=== PATIENT | female | born 1950 | race Caucasian/White ===

== ENCOUNTER → 2023-12-11 07:13 | Outpatient (REF) | payer MEDICARE, BC, SELFPAY | LOC: WDC 07:13 | PROVIDERS: ATTENDING PHYSICIAN Obstetrics & Gynecology Gynecology; FAMILY PHYSICIAN Family Medicine | DX: Z12.31 Encounter for screening mammogram for malignant neoplasm of breast (principal) | CPT/HCPCS: 77063; 77067 ==

== ENCOUNTER 2024-03-24 14:14 | Inpatient (IN) | payer MEDICARE, BC, SELFPAY ==
[2024-03-24 09:39] VITALS: BP 170/106
--- NOTE | 2024-03-24 09:48 | ED.GENMED ---
History of Present Illness
General
Chief Complaint: Blood Sugar Problem
Time Seen by Provider: 03/24/24 09:48
Travel History
Have you had any contact with someone who has COVID-19?: No
Do you have any symptoms of coronavirus? Fever > 100 degrees, chills, cough, shortness of breath, sore throat, loss of taste or smell, muscle aches, or headache?: No
History of Present Illness
History of Present Illness:
HPI: She states she has been on Trulicity since about 1984 but most recently has been having trouble getting it filled as 'nobody has it anymore'. She was switched to Ozempic 8 days ago and since that time she has had nausea, vomiting, diarrhea,
and dizziness. She also is currently being worked up for the possible of cirrhosis and is noted to Dr. Pizano. She reports borderline fever with 100.2 and reports decreased urination recently. She was recommended to start Mounjaro when her
symptoms resolved however she still has ongoing symptoms.
EXAM:
GENERAL: Well appearing in no distress
HEENT: Moist oral mucosa
CARDIOVASCULAR: No murmurs, normal heart rate, regular rhythm, No chest wall tenderness
PULMONARY: No respiratory distress, breath sounds are clear and equal
ABDOMEN: Soft with no peritoneal signs, very mild right tenderness
NEUROLOGIC: Excellent strength all extremities, no coordination deficits
PSYCHIATRIC: Appropriate mental status, normal insight and judgement
EXTREMITIES: Nontender, no edema, moves all extremities equally
SKIN: No rash, no lesions
TIME OF INITIAL ENCOUNTER: 9:55 AM
NUMBER AND COMPLEXITY OF PROBLEMS ADDRESSED AT THE ENCOUNTER
� Chronic conditions affecting care: Diabetes, high blood pressure, hyperlipidemia, migraines
� Acute Exacerbation and/or Progression of Chronic Illness: This is an acute problem
� Differential Diagnosis includes: Dehydration, BAO, electrolyte abnormality, hypoglycemia, hyperglycemia
AMOUNT AND/OR COMPLEXITY OF DATA TO BE REVIEWED AND ANALYZED
� I performed an independent evaluation of and my interpretation is:
EKG:
CT:
X-rays:
Laboratory Studies: White count 10.5, hemoglobin normal, creatinine is 3.1 which is acutely abnormal, bicarb 17, BUN 74, initial glucose 52 then after treatment is at the
Other:
� Review of other/old records: I reviewed ultrasound report from October 2023 that showed fatty liver and gastric emptying study suggested gastroparesis
� Clinical information was obtained by an independent historian: I spoke to the at bedside
� Prescriptions/Medications Considered but not given:
� Further testing considered but not performed:
RISK OF COMPLICATIONS AND/OR MORBIDITY OR MORTALITY OF PATIENT MANAGEMENT
� Social determinants of health affecting care: Lives at home
� Discussion with other providers: Discussed case with Dr. Vizcarra at 11:37 AM for admission to the hospital
� Escalation of care including admission/observation vs risk of discharge considered: The patient is given IV fluids. Labs were also checked. Initial blood sugar on the chemistry is a 52, after juice and dextrose, blood sugar
now at 138. Creatinine is significant elevated compared to prior now at 3
Past History
Past History
ED Past Medical History: Arrthythmia (Paroxysmal atrial fibrillation), Cancer (Cervical), HTN, Hypercholesterolemia, NIDDM, Hypothyroidism and Other (diverticulitis, Kidney stone,)
ED Past Surgical History: Appendectomy ([facility]), Bowel resection, Cardiac (Cardiac catheterization March 2017, unremarkable, Ablation for atrial fib), Cholecystectomy, Gynecological (Hysterectomy), Orthopedic (R hip replacement) and Urological
(Bladder suspension, lithotripsy with ureteral stent and stone removal)
Social History
Tobacco: Former smoker (Quit in 1981)
Alcohol: Occasional
Personal:
Living: with family
Employment: Retired
Family History
Family History: CAD
Phy Exam
Physical Exam
Physical Exam:
See HPI
Course
Orders/Labs/Results
Orders:
Orders
03/24/24 09:52
0.9% Sodium Chloride 1000 ml [Nss] 1,000 ml IV BOLUS
03/24/24 10:03
Ondansetron Injectable [Zofran] 4 mg IV NOW STA
03/24/24 10:15
Complete Blood Count/With Diff Urgent
Comprehensive Metabolic Panel Urgent
Direct Bilirubin Urgent
Lipase Urgent
03/24/24 11:00
Dextrose 10%/Water 500 ml [D10w] 500 ml IV 250 mls/hr
03/24/24 11:33
CT Abd/pel Without Iv Or Oral Urgent
Comment:
Reason For Exam: R pain; BAO
03/24/24 11:35
0.9% Sodium Chloride 1000 ml [Nss] 1,000 ml IV BOLUS
03/24/24 12:31
Urinalysis Reflex To Culture Urgent
Date Specimen was Collected: 03/24/24
Time Specimen was Collected: 12:29
Urine Microscopic Reflex Cult Urgent
Urine Culture Urgent
REESE Source: U
Specimen Description:
Date Specimen was Collected: 03/24/24
Time Specimen was Collected: 12:29
03/24/24 12:44
Add On- LAB Urgent
Tests Added?: lft's , t bili
03/24/24 13:19
Ondansetron Injectable [Zofran] 4 mg IV Q6HPRN PRN
Pantoprazole [Protonix IV] 40 mg IV NOW STA
03/24/24 13:20
Accucheck [Bedside Glucose Monitoring] As Directed
Frequency: q4h
03/24/24 13:48
Admit/Transfer Patient As Directed
Co-Sign Provider:
Level of Care: Inpatient admission
Assign to:: Medical/Surgical
Physician / Group: maureen rogel
Diagnosis: bao 2/2 n,v,d vs obst process
Reason for Hospitalization: bao 2/2 n,v,d vs obst process
Expected length of stay greater than two midnights?: Yes
ELOS- Estimated Length of Stay in days: 3
I certify the patient meets the requirements for IP care: Yes
Code Status As Directed
Resuscitation Status: Full Code
03/24/24 13:56
0.9% Sodium Chloride [Nss (Preservative Free)] 10 ml IV NOW STA
03/24/24 15:39
0.9% Sodium Chloride 1000 ml [Nss] 1,000 ml IV 100 mls/hr
Dextrose 50%-Water [Dextrose 50% Syringe] 12.5 grams IV [id number] PRN
Glucagon [GlucaGen] 1 mg IM PRN PRN
03/24/24 15:39
Activity As Directed
Activity Level: As Tolerated
Bedside Glucose Monitoring As Directed
Frequency: AC&HS
Additional Instructions:: Change to q6h if pt on TPN, tube feeding or not eating
Intake/ Output As Directed
Frequency: Per unit guidelines
Pneumatic Compression Sleeves As Directed
Type: Knee high
Vital Signs As Directed
Frequency: Per unit guidelines
Ot Eval And Treat Routine
Pt Eval And Treat Routine
Activity Level: As Tolerated
DX Deep Vein Thrombosis Video Routine
03/24/24 16:30
Insulin Aspart Corrective Low [Novolog Flexpen-Low Resistance] See Protocol SC AC
03/25/24 06:00
Cardiovascular Evaluation IN AM
Complete Blood Count/With Diff IN AM
Comprehensive Metabolic Panel IN AM
Glycohemoglobin (HgbA1c) IN AM
03/25/24 08:00
0.9% Sodium Chloride [Nss (Preservative Free)] 10 ml IV DAILY
Pantoprazole [Protonix IV] 40 mg IV DAILY
03/26/24 06:00
Complete Blood Count/With Diff IN AM
Comprehensive Metabolic Panel IN AM
03/27/24 06:00
Complete Blood Count/With Diff IN AM
Comprehensive Metabolic Panel IN AM
Abnormal Lab Results
03/24/24 03/24/24 03/24/24
10:15 11:25 12:31
RBC 4.17 L 10^6/uL
(4.20-5.40)
MCH 32.1 H pg
(27.0-31.0)
Abs Immat Gran (auto) 0.1 H 10^3/uL
(0-0.05)
Absolute Monos (auto) 0.8 H 10^3/uL
(0.1-0.6)
Immature Gran % 0.6 H %
(0-0.5)
Carbon Dioxide 17 L mmol/L
(22-30)
BUN 74 H mg/dl
(7-17)
Creatinine 3.1 H mg/dL
(0.6-1.0)
Glucose 52 L* mg/dl
(70-99)
Calcium 11.0 H mg/dl
(8.4-10.2)
AST 47 H U/L
(14-36)
ALT 43 H U/L
(0-35)
Lipase 352 H U/L
(23-300)
Urine Nitrite (Reflex) Positive A
(Negative)
Leukocyte Esterase Rfl 1+ A
(Negative)
Urine WBC (Reflex) 16-20 A /HPF
(0-5)
Urine Bacteria (Reflex) Many A
(Negative)
POC Glucose 138 H mg/dl
(70-99)
03/24/24 10:15
03/24/24 10:15
Vital Signs
Initial and Last Documented VS:
Initial Vital Signs
Temp Pulse Resp BP Pulse Ox
97.9 F 71 20 170/106 98
03/24/24 09:39 03/24/24 09:39 03/24/24 09:39 03/24/24 09:39 03/24/24 09:39
Last Documented Vital Signs
Temp Pulse Resp BP Pulse Ox
98.3 F 77 18 133/67 96
03/24/24 13:01 03/24/24 15:00 03/24/24 15:00 03/24/24 15:00 03/24/24 15:00
*Critical Care Note
Total Time (30-74mins, 75-104mins- exclusive of procedures): Not Applicable
ED Attending Note
-
Portions of this chart may have been created with voice recognition software.� Occasional wrong word or��sound alike� substitutions may have occurred due to the inherent limitations of voice recognition software.
Discharge Plan
Departure
Patient Disposition: Admit
Date of Disposition: 03/24/24
Time of Disposition: 11:37
Presentation/result/management discussed w/ accepting MD/DO: Hospitalist
Discharge Problem:
BAO (acute kidney injury)
Interventions
Interventions:
*Risk Screen - Suicide Last Done: 03/24/24 09:39
*General Assessment Last Done: 03/24/24 09:39
*Neglect/Abuse Screening Last Done: 03/24/24 09:39
ED- Fall Risk Assessment Last Done: 03/24/24 15:16
*ED COVID-19 Vaccine History Last Done: 03/24/24 16:05
*Nursing Disposition Last Done: 03/24/24 16:16
ED- Neurological Assessment Last Done: 03/24/24 10:14
Discharge Date and Time
Discharge Date/Time: 03/24/24 16:17
[2024-03-24] MEDS: NSS 1000 IV ×3 (10:18→16:32)
[2024-03-24] MEDS: ZOFRAN 4 MG IV ×2 (10:20→15:01)
[2024-03-24 10:25] VITALS: BMI 29.3
[2024-03-24 10:25] LABS: % Basophils 0.4 % (0-2); % Eosinophils 1.1 % (0-6); % Immature Granulocytes 0.6 % (0-0.5); % Lymphocytes 31.9 % (20.5-51.1); % Monocytes 7.4 % (1.7-9.3); % Neutrophils 58.6 % (42.2-75.2); Absolute Eosinophils 0.1 10^3/uL (0-0.7); Absolute Immature Granulocytes 0.1 10^3/uL (0-0.05); Absolute Lymphocytes 3.3 10^3/uL (1.2-3.4); Absolute Monocytes 0.8 10^3/uL (0.1-0.6); Absolute Neutrophils 6.1 10^3/uL (1.4-6.5); Hematocrit 38.2 % (37.0-47.0); Hemoglobin 13.4 g/dL (12.0-16.0); Mean Corp Hgb Conc. 35.1 g/dL (33.0-37.0); Mean Corpuscular Hgb 32.1 pg (27.0-31.0); Mean Corpuscular Volume 91.6 fL (81.0-99.0); Mean Platelet Volume 9.5 fL (7.4-10.4); Nucleated Red Blood Cells % 0 %; Platelet Count 281 10^3/uL (130-400); Red Blood Cell Count 4.17 10^6/uL (4.20-5.40); Red Cell Dist. Width 12.8 % (11.5-14.5); White Blood Cell Count 10.5 10^3/uL (4.8-10.8)
[2024-03-24 10:44] LABS: Blood Urea Nitrogen 74 mg/dl (7-17); Carbon Dioxide 17 mmol/L (22-30); Chloride 102 mmol/L (98-107); Estimated Creatinine Clearance 14 ml/min; Glucose 52 mg/dl (70-99); Potassium 4.6 mmol/L (3.5-5.1); Sodium 136 mmol/L (135-145); eGFR 15.11
[2024-03-24 10:52] LABS: Lipase 352 U/L (23-300)
[2024-03-24] MEDS: D10W 500 IV (10:58)
[2024-03-24 11:26] LABS: Glucose - Point of Care 138 mg/dl (70-99)
--- NOTE | 2024-03-24 12:46 | HPS.HSE ---
Addendum entered and electronically signed by Santana Lopez MD 03/24/24 16:03:
Seen and examined by me independently in collaboration with the nurse practitioner Kaitlin.
Past medical history/social history/medication/allergies reviewed.
Lab data and imaging data reviewed.
DM Type 2 was on Trulicity but because of issue with supply, she was prescribed Ozempic and after she took the first dose of 2.5 mg injection of Ozempic she started to have nausea vomiting and diarrhea. She did not go back on that. She was given
Mounjaro instead of that once the GI symptoms resolved but she has not started taking that. With continued GI symptoms she comes to the hospital. She has some abdominal pain crampy in the upper abdomen area. No fever or chills.
Despite GI symptoms she continued to take her medication including glimepiride, metformin and antihypertensives ARB.
She is discovered to have acute kidney injury with hypoglycemia and metabolic acidosis with elevated anion gap.
Abdomen epigastric and right upper quadrant area tenderness. She had a prior gallbladder resection. Mild elevated lipase�LFTs noted. She is known to have COLLADO. Transaminitis at her baseline.
She had prior history of nephrolithiasis.
Obtain a CT of the abdomen pelvis to rule out any obstructing stones. Start on IV fluids with bicarbonate as venous pH was 7.27. Consult nephrology. Treat symptomatically for GI symptoms for now till the CT of the abdomen pelvis is back.
Consider GI eval depending on etiology. Abdomen is benign other than tenderness in epigastric and right upper quadrant area. Start a PPI.
Original Note:
Family Physician
-
Family Physician: Norberto Perez
Chief Complaint
-
Nausea, vomiting, diarrhea, bilateral flank pain, right upper quadrant pain
History of Present Illness
73-year-old female who has been on Trulicity since 1984. She has been having trouble getting the medication filled as it is not in stock and she missed a week. She was switched to Ozempic 8 days ago since that time she has had daily nausea,
vomiting, diarrhea and dizziness. Despite the symptoms she continued to take her daily medications including Avapro, metformin. She complains today of right upper quadrant pain and bilateral flank pain. She denies dysuria, frequency, urgency.
She was also noted to be hypoglycemic with blood sugar 57 in the ER which was treated with IV D10. She also reports a borderline fever of 100.2 with decreased urination. She denies headache, sore throat, chest pain, palpitations, shortness breath,
cough, urinary symptoms. In the ER her labs revealed BAO with a creat of 3.1. She she was advised by her PCP to switch to Mounjaro after symptoms resolved. She is also getting worked up for possible COLLADO cirrhosis by Dr. Pizano from
gastroenterology.
PMH DM2, HTN, HLD, paroxysmal A-fib�status post ablation, left ventricular hypertrophy ex-smoker, GERD, duodenal ulcer with GI bleed 2017 secondary to NSAID use, chronic diarrhea, iron deficiency anemia, CVA, migraines, restless leg syndrome,
hypothyroidism diverticulosis/diverticulitis, anemia, cervical cancer status post hysterectomy, renal calculi, osteoarthritis, DDD, lumbar stenosis, fibromyalgia, tobacco use, obesity
Medical History
Past Medical History
Past Medical History: Reports Other
Additional Past Medical History:
DM2
HTN
HLD
Paroxysmal A-fib�status post cryo ablation 2016
Hypothyroidism
Left ventricular hypertrophy
GERD
Duodenal ulcer with GI bleed 2017 secondary to NSAID use
Chronic diarrhea
Diverticulosis/diverticulitis,
Iron deficiency anemia,
Ex-smoker
CVA
migraines
restless leg syndrome
anemia
cervical cancer status post hysterectomy
renal calculi with history of renal stent and kidney stone removal March 2017
osteoarthritis
DDD
lumbar stenosis
fibromyalgia
tobacco use
obesity
Melanoma removal left lower extremity 2018
Past Surgical History: Reports Other
Additional Past Surgical History:
Hysterectomy
Colon resection 1981
Bladder suspension 1995, 1999
Cholecystectomy
Bunionectomy 1989
Left rotator cuff repair 1999
Bilateral knee surgery 2003
Right hip replacement
Right total knee arthroplasty February 2018
Left total knee arthroplasty January 2019
Left hip surgery March 2021
Spinal surgery 2021
Right great toe joint replacement 1997
Cardiac cath 2020 and 03/25/2017
Renal stent 03/25/2017 with kidney stone removal
PVI with cryo 05/22
Lipoma removals
Melanoma removal left lower extremity 2018
Bilateral cataract extraction
Social History
Tobacco: Non-smoker
Alcohol: None
Drug: None
Family History
Family History: Other (Mother IA age 52, father Alzheimer's age 83, 2 siblings 1 brother drug addiction 1 sister lung cancer other brother living unknown)
Allergies / Home Medications
Allergies reflects when Allergies were last updated in [facility].
Home Medications with original date entered in [facility]
Allergy/Medication List:
Allergies
Allergy/AdvReac Type Severity Reaction Status Date / Time
latex [Latex] Allergy breathing Verified 03/24/24 09:46
problems,
Rash
Hives,swelling
Sulfa (Sulfonamide Allergy short of Verified 03/24/24 09:46
Antibiotics) breath
sulfisoxazole Allergy SHORTNESS Verified 03/24/24 09:46
OF BREATH
FROM SULFA
ABX
carvedilol [From Coreg] AdvReac Nausea Verified 03/24/24 09:46
cephalexin [From Keflex] AdvReac Vomiting Verified 03/24/24 09:46
ciprofloxacin [From Cipro] AdvReac Nausea / Verified 03/24/24 09:46
Vomiting
codeine AdvReac severe Verified 03/24/24 09:46
vomiting
hydrocodone AdvReac Nausea / Verified 03/24/24 09:46
Vomiting
levofloxacin [From Levaquin] AdvReac Tendonitis, Verified 03/24/24 09:46
Myalgias
morphine AdvReac Patient Verified 03/24/24 09:46
feels that
she can
handle
morphine
niacin AdvReac red Verified 03/24/24 09:46
rash;skin
gets hot
NSAIDS (Non-Steroidal AdvReac GI Verified 03/24/24 09:46
Anti-Inflamma bleeding -
needed
transfusions
oxycodone HCl [From Percocet] AdvReac Vomiting Verified 03/24/24 09:46
tramadol HCl [From Ultram] AdvReac Nausea / Verified 03/24/24 09:46
Vomiting
Home Medications
L.acidoph, paracasei,B. lactis 10 billion cell capsule 1 ea PO DAILY Gastrointestinal issue 02/10/17
cyanocobalamin (vitamin B-12) 1,000 mcg tablet 1,000 mcg PO DAILY Supplement 02/10/17
glimepiride 4 mg tablet 4 mg PO BID Diabetes 02/10/17
levothyroxine 112 mcg tablet 112 mcg PO DAILY Thyroid 02/10/17
metoprolol succinate 50 mg tablet,extended release 24 hr 50 mg PO HS Blood pressure 02/10/17
metformin 1,000 mg tablet 1,000 mg PO BID #0 tabs 02/15/18
biotin 5,000 mcg disintegrating tablet 5,000 mcg PO DAILY Supplement 02/11/21
omega-3 acid ethyl esters 1 gram capsule (Lovaza) 2 cap PO BID High cholesterol ##0 02/11/21
therapeutic multivitamin 1 tab PO DAILY Supplement ##0 02/11/21
irbesartan 75 mg tablet (Avapro) 75 mg PO DAILY 03/02/23
omeprazole 20 mg capsule,delayed release 20 mg PO DAILYPRN PRN gerd 03/02/23
aspirin 81 mg tablet,delayed release 81 mg PO DAILY 03/24/24
cholecalciferol (vitamin D3) 25 mcg (1,000 unit) tablet (Vitamin D3) 25 mcg PO Q48H 03/24/24
Review of Systems
-
History Source: Patient and Family ( bedside)
A 12 point ROS was completed and negative except as noted: Yes
Constitutional: Denies Fever or Chills
EENT: Denies Sore Throat or Runny Nose
Respiratory: Denies Cough or Trouble Breathing
Cardiac: Denies Chest Pain, Diaphoresis, Palpitations or Syncope
Abdomen/GI: Reports Abdominal Pain (Right upper quadrant), Nausea, Vomiting and Diarrhea
: Reports Flank Pain (Bilateral); Denies Dysuria, Frequency, Incontinence, Difficulty Voiding or Urgency
Musculoskeletal: Denies Joint Pain or Edema
Skin: Denies Itching or Rash
Neurological: Reports Dizzy; Denies Headache or Weakness
Endocrine: Reports No Symptoms
Hematologic/Lymphatic: Reports No Symptoms
Psych: Reports Calm
Physical Exam
Vital Signs
Vital Signs
Temp Pulse Resp BP Pulse Ox
97.9 F 71 20 170/106 98
03/24/24 09:39 03/24/24 09:39 03/24/24 09:39 03/24/24 09:39 03/24/24 09:39
Physical Exam
General: Comfortable and Conversant; No Fever or Chills
HEENT: NormoCephalic, Anicteric, PERRLA, [place] Conjunctivae, No Ptosis and Other (Dry oral mucosa)
Respiratory: Clear; No Wheezes, Rales or Rhonchi
Cardiac: S1/S2 and Regular Rhythm; No Murmur, Rub, Gallop or Peripheral Edema
Breast: Deferred by me
GI: Soft, Non Distended, Normal Bowel Sounds, Tender (Right upper quadrant) and No Hepatosplenomegaly
Rectal: Deferred by Provider
Genito-urinary: Costovertebral angle tend (Bilateral CVA tenderness)
Musculoskeletal: No Clubbing, No Cyanosis and No Edema
Skin: Warm and Dry; No Rash or Jaundice
Neuro: AO x 3, No Motor Deficits, Nonfocal/grossly intact, Cranial Nerves Intact and No Sensory Deficits; No Slurred Speech, Facial Droop or Tremors
Psych: Calm
Laboratory Results
-
03/24/24 10:15
03/24/24 10:15
Laboratory Results
Lipase 352 U/L (23-300) H 03/24/24 10:15
Impression/Plan
-
Impression/plan:
Admit to MedSurg
#Acute nausea vomiting diarrhea likely secondary to Ozempic versus acute gastroenteritis versus intra-abdominal process
#Hx cholecystectomy
-Lipase 352, check LFTs
-Check CT abdomen pelvis
Initial dose of Ozempic was started on 03/16/2024
-IV Zofran
-IV NSS
-IV PPI
-Follow CBC, CMP
#BAO 2/2 nausea, vomiting, diarrhea versus obstructive uropathy
#Hx of Renal stent 03/25/2017 with kidney stone removal
Creat 3.1 was 0.7 in 2022, bun 74
-IV fluids given in ER D10 250 cc an hour
-Monitor urine output
-HOLD metformin 1000 mg twice daily,-HOLD irbesartan 75 mg daily
-Check CT abdomen pelvis
-Follow BMP
#DM2 with acute hypoglycemia likely secondary to Ozempic with nausea vomiting diarrhea
#Hx Trulicity since 1984 no longer in stock
-Took Ozempic 8 days ago 03/16/24
-Blood sugar was 52 in the emergency department she was treated with oral juice and D10
-Will follow Accu-Cheks every 4 hours with as needed dextrose
-Check HgbA1c
-HOLD metformin, glimepiride 4 mg twice daily
--HOLD irbesartan 75 mg daily
-Recommend following up with PCP for possible switch to Mounjaro per prior recommendation
#Fatty liver
-Patient being worked up for possible Collado cirrhosis by Dr. Jerica GASTON
#HTN�benign
BP 168/93
-Continue metoprolol succinate 50 mg at bedtime
-HOLD irbesartan 75 mg daily
#Hypothyroidism
Continue levothyroxine 112 mcg daily
#HLD
Check LFTs
Lovasa 2 capsules p.o. twice daily
#Chronic iron deficiency anemia
No reported iron supplements
Hgb 13.4, MCV 91.6
#Paroxysmal A-fib�status post cryo ablation 2016
#GERD/ duodenal ulcer with GI bleed 2017 secondary to NSAID use
-Continue IV PPI
#Hx chronic diarrhea
#Diverticulosis diverticulitis Hx
# Former nicotine abuse
1/4 pack a day x 18 years stopped 1985
#CVA hx
Hold current aspirin, Lovaza due to nausea vomiting
#Migraines hx -no current headache
#Fibromyalgia
#Osteoarthritis
#DDD
#lumbar stenosis
#Obesity due to excess calorie consumption�BMI 29.3 KG
-Patient currently on weight loss medication
Other PMH:
Left ventricular hypertrophy
ex-smoker
restless leg syndrome
cervical cancer status post hysterectomy
DVT prophylaxis
SCDs
Full code
[2024-03-24 13:01] VITALS: BP 120/65
[2024-03-24 13:05] LABS: Urine Albumin Trace (Neg - Trace); Urine Bilirubin Negative (Negative); Urine Character Slightly Cloudy (Clear); Urine Color Yellow; Urine Glucose Negative (Negative); Urine Ketone Negative (Negative); Urine Leukocyte 1+ (Negative); Urine Nitrite Positive (Negative); Urine Occult Blood Negative (Negative); Urine Urobilinogen Negative (Neg - 1+)
[2024-03-24 13:44] LABS: ALT (SGPT) 43 U/L (0-35); AST (SGOT) 47 U/L (14-36); Albumin 4.5 g/dl (3.5-5.0); Alkaline Phosphatase 67 U/L (38-126); Direct Bilirubin 0.4 mg/dl (0.0-0.4); Total Bilirubin 0.6 mg/dl (0.2-1.3); Total Protein 7.7 g/dl (6.3-8.2)
[2024-03-24 14:21] LABS: Urine Squamous Cell 16-20 /LPF (Few)
[2024-03-24 14:22] LABS: Urine Red Blood Cell 0-2 /HPF (0-2); Urine White Cell 16-20 /HPF (0-5)
[2024-03-24 14:23] LABS: Urine Bacteria Many (Negative)
[2024-03-24 14:32] LABS: Glucose - Point of Care 41 mg/dl (70-99)
[2024-03-24] MEDS: NSS (PRESERVATIVE FREE) 10 ML IV (14:42)
[2024-03-24 15:00] VITALS: BP 133/67; BP 161/90
[2024-03-24 15:01] LABS: Glucose - Point of Care 162 mg/dl (70-99)
[2024-03-24] MEDS: PROTONIX IV 40 MG IV (15:04)
[2024-03-24 15:06] LABS: Venous Blood Gas B.E. -7.7 mmol/L (-4 to +4); Venous Blood Gas HCO3 18.8 mmol/L (22-27); Venous Blood Gas O2 Sat % 57.9 %; Venous Blood Gas pCO2 41 mmHg (35-48); Venous Blood Gas pH 7.27 (7.32-7.43); Venous Blood Gas pO2 35 mmHg (30-50)
--- NOTE | 2024-03-24 15:27 | W.CON.NEPH ---
Consultation
-
Date/Time Consultation Requested: 03/24/2024 14:20
Date/Time Consultation Performed: 03/24/2024 3:30PM
Requesting Provider: Kaitlin German
Performing Provider: Rosi Galloway
Reason for Consultation: BAO
Medical History
-
Chief Complaint: BAO
History of Present Illness:
Ms. Barboza is a 73YOF with PMH of T2DM, HTN, DLD, pAfib, hypothyroidism, LVH, GERD, chronic diarrhea, CVA, renal calculis with hx of stent in 2017, obesity who presents to the hospital for nausea, vomittin, diarrhea, and abd pain.
Says that she has been on Trulicity since 1984. Has been having trouble getting the medication filled. She was switched to Ozempic 8 days ago since that time she has had daily nausea, vomiting, diarrhea. She endorses lightheadedness and dizziness
for the past week. Despite the symptoms she continued to take her daily medications including metformin. She complains today of right back pain. She denies dysuria, frequency, urgency. She was also noted to be hypoglycemic with blood sugar 57 in
the ER which was treated with IV D10. She denies headache, sore throat, chest pain, palpitations, shortness breath, cough, urinary symptoms.
Her Cr was noted to 3.1 in the ER for which nephrology is consulted. Denies NSAID usage
Past Medical History
DM2
HTN
HLD
Paroxysmal A-fib�status post cryo ablation 2016
Hypothyroidism
Left ventricular hypertrophy
GERD
Duodenal ulcer with GI bleed 2016 secondary to NSAID use
Chronic diarrhea
Diverticulosis/diverticulitis,
Iron deficiency anemia
Ex-smoker
CVA
migraines
restless leg syndrome
anemia
cervical cancer status post hysterectomy
renal calculi with history of renal stent and kidney stone removal March 2017
osteoarthritis
DDD
lumbar stenosis
fibromyalgia
tobacco use
obesity
Melanoma removal left lower extremity 2018
Past Surgical History: Other (Hysterectomy Colon resection 1981 Bladder suspension 1995, 1999 Cholecystectomy Bunionectomy 1989 Left rotator cuff repair 1999 Bilateral knee surgery 2003 Right hip replacement Right total knee arthroplasty February 2018
Left total knee arthroplasty January 2019 Left hip surgery March 2021 Spinal surgery )
Social History
Tobacco: Non-Smoker
Alcohol: None
Drug: None
Allergies / Home Medications
Allergy/AdvReac Type Severity Reaction Status Date / Time
latex [Latex] Allergy breathing Verified 03/24/24 09:46
problems,
Rash
Hives,swelling
Sulfa (Sulfonamide Allergy short of Verified 03/24/24 09:46
Antibiotics) breath
sulfisoxazole Allergy SHORTNESS Verified 03/24/24 09:46
OF BREATH
FROM SULFA
ABX
carvedilol [From Coreg] AdvReac Nausea Verified 03/24/24 09:46
cephalexin [From Keflex] AdvReac Vomiting Verified 03/24/24 09:46
ciprofloxacin [From Cipro] AdvReac Nausea / Verified 03/24/24 09:46
Vomiting
codeine AdvReac severe Verified 03/24/24 09:46
vomiting
hydrocodone AdvReac Nausea / Verified 03/24/24 09:46
Vomiting
levofloxacin [From Levaquin] AdvReac Tendonitis, Verified 03/24/24 09:46
Myalgias
morphine AdvReac Patient Verified 03/24/24 09:46
feels that
she can
handle
morphine
niacin AdvReac red Verified 03/24/24 09:46
rash;skin
gets hot
NSAIDS (Non-Steroidal AdvReac GI Verified 03/24/24 09:46
Anti-Inflamma bleeding -
needed
transfusions
oxycodone HCl [From Percocet] AdvReac Vomiting Verified 03/24/24 09:46
tramadol HCl [From Ultram] AdvReac Nausea / Verified 03/24/24 09:46
Vomiting
�Medication �Instructions �Recorded �Confirmed �Type
L.acidoph, paracasei,B. lactis 10 1 ea PO DAILY Gastrointestinal 02/10/17 03/24/24 History
billion cell capsule issue
cyanocobalamin (vitamin B-12) 1,000 mcg PO DAILY Supplement 02/10/17 03/24/24 History
1,000 mcg tablet
glimepiride 4 mg tablet 4 mg PO BID Diabetes 02/10/17 03/24/24 History
levothyroxine 112 mcg tablet 112 mcg PO DAILY Thyroid 02/10/17 03/24/24 History
metoprolol succinate 50 mg 50 mg PO HS Blood pressure 02/10/17 03/24/24 History
tablet,extended release 24 hr
metformin 1,000 mg tablet 1,000 mg PO BID #0 tabs 02/15/18 03/24/24 Rx
biotin 5,000 mcg disintegrating 5,000 mcg PO DAILY Supplement 02/11/21 03/24/24 History
tablet
omega-3 acid ethyl esters 1 gram 2 cap PO BID High cholesterol ##0 02/11/21 03/24/24 History
capsule (Lovaza)
therapeutic multivitamin 1 tab PO DAILY Supplement ##0 02/11/21 03/24/24 History
irbesartan 75 mg tablet (Avapro) 75 mg PO DAILY 03/02/23 03/24/24 History
omeprazole 20 mg capsule,delayed 20 mg PO DAILYPRN PRN gerd 03/02/23 03/24/24 History
release
aspirin 81 mg tablet,delayed 81 mg PO DAILY 03/24/24 03/24/24 History
release
cholecalciferol (vitamin D3) 25 25 mcg PO Q48H 03/24/24 03/24/24 History
mcg (1,000 unit) tablet (Vitamin
D3)
Review of Systems
-
History Source: Patient
All other systems: Negative unless noted
Constitutional: Fever, Weight Loss and Fatigue
Abdomen/GI: Nausea and Vomiting
Musculoskeletal: Other (back pain)
Skin: No Symptoms
Neurological: Dizzy and Weakness
Physical Exam
Vital Signs
Vital Signs
Temp Pulse Resp BP Pulse Ox
97.9 F 71 18 120/65 98
03/24/24 09:39 03/24/24 13:01 03/24/24 13:01 03/24/24 13:01 03/24/24 13:01
Lab Results
WBC 10.5 10^3/uL (4.8-10.8) 03/24/24 10:15
RBC 4.17 10^6/uL (4.20-5.40) L 03/24/24 10:15
Hgb 13.4 g/dL (12.0-16.0) 03/24/24 10:15
Hct 38.2 % (37.0-47.0) 03/24/24 10:15
Plt Count 281 10^3/uL (130-400) 03/24/24 10:15
Sodium 136 mmol/L (135-145) 03/24/24 10:15
Potassium 4.6 mmol/L (3.5-5.1) 03/24/24 10:15
Chloride 102 mmol/L (98-107) 03/24/24 10:15
Carbon Dioxide 17 mmol/L (22-30) L 03/24/24 10:15
BUN 74 mg/dl (7-17) H 03/24/24 10:15
Creatinine 3.1 mg/dL (0.6-1.0) H 03/24/24 10:15
eGFR 15.11 03/24/24 10:15
Glucose 52 mg/dl (70-99) L* 03/24/24 10:15
Calcium 11.0 mg/dl (8.4-10.2) H 03/24/24 10:15
Albumin 4.5 g/dl (3.5-5.0) 03/24/24 10:15
Physical Exam
General: AOx3
HEENT: PERRL, EOMI, Anicteric, Conjunctivae Clear, Ear/Nose Intact, Hearing Normal, Neck Supple, Trachea Midline, No JVD and Other (dry mucous membranes)
Respiratory: Clear and Wheezes
Cardiac: S1/S2, Regular Rate/Rhythm and No Edema
Breast: Deferred by me
Abdomen: Soft, Nontender and Nondistended
Rectal: Deferred by Provider
Genito-urinary: No Costovertebral Tender
Musculoskeletal: No Clubbing, No Cyanosis and No Edema
Skin: No Rash, Warm, Dry, No Clubbing and No Bruising
Neuro: Nonfocal/Grossly Intact
Hematologic/Lymphatic: No Cervical Lymphadenopathy
Psych: Mood/afflect pleasant and Insight/judgement good
Data Reviewed
-
Radiology: Report Reviewed by me (non objustructing L kidney stone)
Labs: Labs Reviewed by me, Discussed with Nurse and Discussed with Patient
Old Records: Reviewed
Assessment/Plan
-
Assessment:
BAO
HAGMA
Hypoglycemia
HTN
Plan:
BAO
- baseline Cr around 0.7, elevated to 3.1
- appears to be pre-renal vs ATN
- okay with fluids -- would change to LR at 250cc an hour once blood sugars stabilize
- urine notable for possible UTI, but not endorsing sxs at this time. cultures pending
- awaiting CT A/P
- hold further nephrotoxic agents
HAGMA
- likely in the setting of renal failure
- please obtain beta hydroxybutyrate + and lactate
[2024-03-24 16:00] VITALS: BMI 29.7
[2024-03-24] MEDS: D10W IV ×2 (16:29→16:30)
[2024-03-24 17:16] LABS: Glucose - Point of Care 76 mg/dl (70-99)
[2024-03-24] MEDS: NOVOLOG FLEXPEN-LOW RESISTANCE SC (17:29)
[2024-03-24 17:42] LABS: Lactic Acid 1.6 mmol/L (0.7-2.0)
[2024-03-24 18:13] LABS: B-Hydroxybutyrate 0.25 mmol/L (0.02-0.27)
[2024-03-24 20:19] LABS: Glucose - Point of Care 217 mg/dl (70-99)
[2024-03-24] MEDS: TYLENOL 650 MG PO (22:08)
[2024-03-24 23:19] VITALS: BP 154/84
[2024-03-25] MEDS: NSS 1000 IV ×2 (03:16→12:09)
[2024-03-25 03:18] LABS: Glucose - Point of Care 118 mg/dl (70-99)
[2024-03-25 06:00] VITALS: BMI 30.3
[2024-03-25 07:27] LABS: % Basophils 0.5 % (0-2); % Eosinophils 1.3 % (0-6); % Immature Granulocytes 0.9 % (0-0.5); % Lymphocytes 35.3 % (20.5-51.1); % Monocytes 8.8 % (1.7-9.3); % Neutrophils 53.2 % (42.2-75.2); Absolute Eosinophils 0.1 10^3/uL (0-0.7); Absolute Immature Granulocytes 0.1 10^3/uL (0-0.05); Absolute Monocytes 0.5 10^3/uL (0.1-0.6); Hematocrit 33.8 % (37.0-47.0); Hemoglobin 11.2 g/dL (12.0-16.0); Mean Corp Hgb Conc. 33.1 g/dL (33.0-37.0); Mean Corpuscular Volume 96.6 fL (81.0-99.0); Nucleated Red Blood Cells % 0 %; Platelet Count 172 10^3/uL (130-400); Red Cell Dist. Width 12.8 % (11.5-14.5); White Blood Cell Count 5.6 10^3/uL (4.8-10.8)
[2024-03-25 07:29] LABS: Glucose - Point of Care 138 mg/dl (70-99)
[2024-03-25 07:30] VITALS: BP 138/75
[2024-03-25] MEDS: NOVOLOG FLEXPEN-LOW RESISTANCE SC ×2 (08:05→16:19)
[2024-03-25 08:06] LABS: ALT (SGPT) 32 U/L (0-35); AST (SGOT) 40 U/L (14-36); Albumin 3.4 g/dl (3.5-5.0); Alkaline Phosphatase 64 U/L (38-126); Blood Urea Nitrogen 57 mg/dl (7-17); Calcium 8.9 mg/dl (8.4-10.2); Carbon Dioxide 19 mmol/L (22-30); Chloride 109 mmol/L (98-107); Estimated Creatinine Clearance 19 ml/min; Glucose 122 mg/dl (70-99); HDL Cholesterol 25 mg/dl; LDL Cholesterol, Calculated 54 mg/dl; Potassium 4.6 mmol/L (3.5-5.1); Sodium 136 mmol/L (135-145); Total Bilirubin 0.4 mg/dl (0.2-1.3); Total Cholesterol 132 mg/dl (50-199); Total Protein 6.1 g/dl (6.3-8.2); Triglyceride 266 mg/dl (10-149); Very Low Density Lipoprotein 53 mg/dl (0-30); eGFR 22.81
[2024-03-25] MEDS: PROTONIX IV 40 MG IV (08:06)
[2024-03-25] MEDS: NSS (PRESERVATIVE FREE) 10 ML IV (08:07)
--- NOTE | 2024-03-25 10:57 | W.PN.HOSP.TC ---
Today's Communication/Plan
-
stool studies. Blood cultures.
Start on ceftriaxone.
Continue with IV fluids.
Follow creatinine.
Assessment / Plan
Assessment / Plan
#Acute nausea vomiting diarrhea likely secondary to Ozempic versus acute gastroenteritis
#Hx cholecystectomy
-Lipase 352, LFTs at baseline
- CT abdomen pelvis Shows no acute findings other than known cirrhosis and portal hypertension
Initial dose of Ozempic was started on 03/16/2024
- resolved upper GI symptoms but having ongoing diarrhea.
- Continue to follow stool culture data and if negative and persistent diarrhea consult GI.
#BAO 2/2 nausea, vomiting, diarrhea versus obstructive uropathy
#Hx of Renal stent 03/25/2017 with kidney stone removal
Creat 3.1 was 0.7 in 2022, bun 74
- Improving creatinine
-cw IV fluids
- nephrology following
-HOLD metformin 1000 mg twice daily,-HOLD irbesartan 75 mg daily
- CT abdomen pelvis shows no obstructing calculus/obstructive uropathy
-Follow BMP
# dysuria with positive urinalysis suggestive of UTI. Urine culture growing E. coli. Started on ceftriaxone. Check blood cultures.
#DM2 with acute hypoglycemia likely secondary to Ozempic with nausea vomiting diarrhea
#Hx Trulicity since 1984 no longer in stock
-Took Ozempic 8 days ago 03/16/24
-Blood sugar was 52 in the emergency department she was treated with oral juice and D10
- No further hypoglycemias. Continue to follow Accu-Cheks.
-Check HgbA1c
-HOLD metformin, glimepiride 4 mg twice daily
--HOLD irbesartan 75 mg daily
-Recommend following up with PCP for possible switch to Mounjaro per prior recommendation
# Cirrhosis with portal hypertension
-No evidence of hepatic encephalopathy, GI bleed or ascites.
-Patient being worked up for possible Collado cirrhosis by Dr. Jerica GASTON
#HTN�benign
-Continue metoprolol succinate 50 mg at bedtime
-HOLD irbesartan 75 mg daily
#Hypothyroidism
Continue levothyroxine 112 mcg daily
#HLD
LFTs At baseline
Lovasa 2 capsules p.o. twice daily
#Chronic iron deficiency anemia
No reported iron supplements
Hgb 13.4, MCV 91.6
#Paroxysmal A-fib�status post cryo ablation 2016
#GERD/ duodenal ulcer with GI bleed 2016 secondary to NSAID use
-Continue IV PPI
#Hx chronic diarrhea
#Diverticulosis diverticulitis Hx
# Former nicotine abuse
1/4 pack a day x 18 years stopped 1985
#CVA hx
Hold current aspirin, Lovaza due to nausea vomiting
#Migraines hx -no current headache
#Fibromyalgia
#Osteoarthritis
#DDD
#lumbar stenosis
#Obesity due to excess calorie consumption�BMI 29.3 KG
-Patient currently on weight loss medication
Other PMH:
Left ventricular hypertrophy
ex-smoker
restless leg syndrome
cervical cancer status post hysterectomy
DVT prophylaxis
SCDs
Full code
Total time spent on today's encounter was 52 minutes which included time spent in counseling the patient regarding diagnosis and treatment plan as listed above, goals of care, and symptom management. Case was discussed with nursing staff, . All
labs and imaging personally reviewed by me. Remainder the time spent in detailed review of previous records, lab data, imaging, and other medical provider documentation.
Anticipated Discharge: > 48 hours
Subjective/Interval History
-
Date of Service: March 25, 2024
no nausea vomiting. Tolerating diet. But still persistent and loose stools.
No fever or chills.
Denies shortness of breath. No dizziness.
She says at home she did notice some discomfort urinating. She also seen decreased urine output in general. She was complaining of bilateral flank pains
Objective Data
-
Labs:
Laboratory Results
03/25/24
06:35
WBC 5.6
Hgb 11.2 L
Hct 33.8 L
Plt Count 172 D
Sodium 136
Potassium 4.6
Chloride 109 H
Carbon Dioxide 19 L
BUN 57 H
Creatinine 2.2 H
Glucose 122 H
Calcium 8.9 D
Total Bilirubin 0.4
AST 40 H
ALT 32
Alkaline Phosphatase 64
Vital Signs:
Vital Signs
Temp Pulse Resp BP Pulse Ox
97.9 F 71 17 138/75 96
03/25/24 07:30 03/25/24 07:30 03/25/24 07:30 03/25/24 07:30 03/25/24 07:30
I&O
03/24/24 03/25/24 03/26/24
06:59 06:59 06:59
Intake Total 2640 / 2640 240 / 240
Balance 2640 / 2640 240 / 240
Review of Systems
-
Respiratory: Denies Trouble Breathing
Cardiac: Denies Chest Pain
Neuro: Denies Dizzy
Physical Exam
-
General: No Apparent Distress
HEENT: Moist Mucous Membranes
Respiratory: Clear to Auscultation
Cardiac: Regular Rhythm and S1/S2
GI: Soft, Nontender, Nondistended and Normal Bowel Sounds
Genito-urinary: Costovertebral Angle Tend (some discomfort in Left CVA area today)
Neuro: AO x 3
Psych: Calm
Data Reviewed
-
CT Scan: Report Reviewed by me (CT A/P)
Labs: Labs Reviewed by me
[2024-03-25 11:08] LABS: Glucose - Point of Care 298 mg/dl (70-99)
[2024-03-25 11:35] VITALS: BP 153/89; PULSE 68; O2SAT 95
--- NOTE | 2024-03-25 11:40 | PTOTSP ---
pt currently demonstrates ability to complete simple ADLs, functional transfers, ambulation with supervision to no assistance. no acute OT needs identified at this time, will sign off.
[2024-03-25] MEDS: ROCEPHIN 1000 MG IV (12:12)
[2024-03-25] MEDS: STERILE WATER FOR INJECTION 10 ML IV (12:12)
--- NOTE | 2024-03-25 12:33 | W.PN.NEPH.PH ---
Today's Communication / Plan
-
Continue saline
Assessment/Plan
-
Assessment:
BAO
HAGMA
Hypoglycemia
HTN
Plan:
Continue IV fluids with saline
Follow basic metabolic panel
Can use bicarbonate fluids if acidosis worsens
-
-
Date of Service: March 25, 2024
CC / HPI / ROS
-
Chief Complaint:
Acute kidney injury
History of Present Illness:
BAO/creatinine down to 2.2
BP stable
Acidosis improving up to 19 with saline
Review of Systems:
Still with abdominal pain no worse or better
No shortness of breath
Watery diarrhea
Labs
-
Labs:
WBC 5.6 10^3/uL (4.8-10.8) 03/25/24 06:35
RBC 3.50 10^6/uL (4.20-5.40) L 03/25/24 06:35
Hgb 11.2 g/dL (12.0-16.0) L 03/25/24 06:35
Hct 33.8 % (37.0-47.0) L 03/25/24 06:35
Plt Count 172 10^3/uL (130-400) D 03/25/24 06:35
Sodium 136 mmol/L (135-145) 03/25/24 06:35
Potassium 4.6 mmol/L (3.5-5.1) 03/25/24 06:35
Chloride 109 mmol/L (98-107) H 03/25/24 06:35
Carbon Dioxide 19 mmol/L (22-30) L 03/25/24 06:35
BUN 57 mg/dl (7-17) H 03/25/24 06:35
Creatinine 2.2 mg/dL (0.6-1.0) H 05/20/24 06:35
eGFR 22.81 03/25/24 06:35
Glucose 122 mg/dl (70-99) H 03/25/24 06:35
Calcium 8.9 mg/dl (8.4-10.2) D 03/25/24 06:35
Albumin 3.4 g/dl (3.5-5.0) L 03/25/24 06:35
Physical Exam
-
Vital Signs:
Vital Signs
Temp Pulse Resp BP Pulse Ox
97.9 F 71 17 138/75 96
03/25/24 07:30 03/25/24 07:30 03/25/24 07:30 03/25/24 07:30 03/25/24 07:30
Cardiovascular:: Regular rate and rhythm
Respiratory:: Bilateral: CTA
Lung Excursion:: Normal
Abdomen:: Soft and Tender
Bowel Sounds:: Normal
Extremity Edema:: None: Bilateral:
[2024-03-25] MEDS: NOVOLOG FLEXPEN-LOW RESISTANCE 3 UNITS SC (12:35)
--- NOTE | 2024-03-25 12:43 | CM ---
Patient seen, initial assessment completed. Patient resides with her in a two story home, no steps to enter. Patient denies DME, VN, or SNF, reports outpatient PT in the past after knee and hip replacements. Patient confirms PCP Norberto
Chris, pharmacy [facility], confirms prescription coverage. Patient denies food insecurities at home. Per PT, no skilled PT need. CM will continue to follow for all discharge planning needs.
Plan; home no needs anticipated.
[2024-03-25 12:49] LABS: Glycohemoglobin (HgbA1c) 6.4 % (4.0-5.6)
[2024-03-25 15:28] VITALS: BP 151/95
[2024-03-25 16:18] LABS: Glucose - Point of Care 106 mg/dl (70-99)
[2024-03-25] MEDS: ZOFRAN 4 MG IV (20:26)
[2024-03-25] MEDS: TYLENOL 650 MG PO (20:48)
[2024-03-25 21:40] LABS: Glucose - Point of Care 169 mg/dl (70-99)
[2024-03-25 23:32] VITALS: BP 124/78
[2024-03-26] MEDS: NSS 1000 IV ×2 (00:08→10:38)
[2024-03-26 06:31] LABS: % Basophils 0.4 % (0-2); % Eosinophils 1.3 % (0-6); % Immature Granulocytes 0.9 % (0-0.5); % Lymphocytes 35.4 % (20.5-51.1); Absolute Eosinophils 0.1 10^3/uL (0-0.7); Absolute Lymphocytes 1.7 10^3/uL (1.2-3.4); Absolute Monocytes 0.4 10^3/uL (0.1-0.6); Absolute Neutrophils 2.5 10^3/uL (1.4-6.5); Hematocrit 32.7 % (37.0-47.0); Hemoglobin 11.1 g/dL (12.0-16.0); Mean Corp Hgb Conc. 33.9 g/dL (33.0-37.0); Mean Corpuscular Hgb 32.2 pg (27.0-31.0); Mean Corpuscular Volume 94.8 fL (81.0-99.0); Mean Platelet Volume 9.7 fL (7.4-10.4); Nucleated Red Blood Cells % 0 %; Platelet Count 168 10^3/uL (130-400); Red Blood Cell Count 3.45 10^6/uL (4.20-5.40); Red Cell Dist. Width 12.6 % (11.5-14.5); White Blood Cell Count 4.7 10^3/uL (4.8-10.8)
[2024-03-26 06:55] LABS: ALT (SGPT) 34 U/L (0-35); AST (SGOT) 35 U/L (14-36); Albumin 3.5 g/dl (3.5-5.0); Alkaline Phosphatase 57 U/L (38-126); Blood Urea Nitrogen 38 mg/dl (7-17); Calcium 8.7 mg/dl (8.4-10.2); Carbon Dioxide 21 mmol/L (22-30); Chloride 111 mmol/L (98-107); Estimated Creatinine Clearance 27 ml/min; Glucose 110 mg/dl (70-99); Potassium 4.6 mmol/L (3.5-5.1); Sodium 138 mmol/L (135-145); Total Bilirubin 0.3 mg/dl (0.2-1.3); Total Protein 6.2 g/dl (6.3-8.2); eGFR 33.42
[2024-03-26 07:50] VITALS: BP 173/91
[2024-03-26 07:58] LABS: Glucose - Point of Care 168 mg/dl (70-99)
[2024-03-26] MEDS: NSS (PRESERVATIVE FREE) 10 ML IV (08:07)
[2024-03-26] MEDS: NOVOLOG FLEXPEN-LOW RESISTANCE 1 UNITS SC ×2 (08:07→16:43)
[2024-03-26] MEDS: PROTONIX IV 40 MG IV (08:07)
--- NOTE | 2024-03-26 11:13 | W.PN.HOSP.TC ---
Today's Communication/Plan
-
Continue with oral diet.
Continue ceftriaxone. Follow blood culture data.
IV fluids per nephrology.
Start on beta-pradeep.
CW SSI
Assessment / Plan
Assessment / Plan
#Acute nausea vomiting diarrhea likely secondary to Ozempic versus acute gastroenteritis
#Hx cholecystectomy
-Lipase 352, LFTs at baseline
- CT abdomen pelvis Shows no acute findings other than known cirrhosis and portal hypertension
Initial dose of Ozempic was started on 03/16/2024
- resolving upper GI symptoms . Tolerating some diet.
- Has some epigastric discomfort - repeat lipase ,cw PPI
- No diarrhea to collect for specimen for stool culture .
#BAO 2/2 nausea, vomiting, diarrhea
#Hx of Renal stent 03/25/2017 with kidney stone removal
Creat 3.1 was 0.7 in 2022, bun 74
- Improving creatinine
- cw IV fluids per renal
- nephrology following
- HOLD metformin 1000 mg twice daily,-HOLD irbesartan 75 mg daily
- CT abdomen pelvis shows no obstructing calculus/obstructive uropathy
- Follow BMP
# dysuria with positive urinalysis suggestive of UTI. Urine culture growing E. coli. Started on ceftriaxone -cw it. Follow blood cultures.
#DM2 with acute hypoglycemia likely secondary to Ozempic with nausea vomiting diarrhea
#Hx Trulicity since 1984 no longer in stock
-Took Ozempic 8 days ago 03/16/24
-Blood sugar was 52 in the emergency department she was treated with oral juice and D10
- No further hypoglycemias. Continue to follow Accu-Cheks.
- HgbA1c 6.4
-HOLD metformin, glimepiride 4 mg twice daily
-Recommend following up with PCP for possible switch to Mounjaro per prior recommendation
# Cirrhosis with portal hypertension
-No evidence of hepatic encephalopathy, GI bleed or ascites.
-Patient being worked up for possible Collado cirrhosis by Dr. Pizano GI
#HTN�benign
-Continue metoprolol succinate 50 mg at bedtime
-HOLD irbesartan 75 mg daily
#Hypothyroidism
Continue levothyroxine 112 mcg daily
#HLD
LFTs At baseline
Lovasa 2 capsules p.o. twice daily
#Chronic iron deficiency anemia
No reported iron supplements
Hgb 13.4, MCV 91.6
#Paroxysmal A-fib�status post cryo ablation 2016
#GERD/ duodenal ulcer with GI bleed 2016 secondary to NSAID use
-Continue IV PPI
#Hx chronic diarrhea
#Diverticulosis diverticulitis Hx
# Former nicotine abuse
1/4 pack a day x 18 years stopped 1985
#CVA hx
Hold current aspirin, Lovaza due to nausea vomiting
#Migraines hx -no current headache
#Fibromyalgia
#Osteoarthritis
#DDD
#lumbar stenosis
#Obesity due to excess calorie consumption�BMI 29.3 KG
-Patient currently on weight loss medication
Other PMH:
Left ventricular hypertrophy
ex-smoker
restless leg syndrome
cervical cancer status post hysterectomy
DVT prophylaxis
SCDs
Full code
Anticipated Discharge: 24 - 48 hours
Subjective/Interval History
-
Date of Service: March 26, 2024
No vomiting. Much improved nausea. Able to tolerate some diet. Crampy abdominal pain. Diarrhea seems to have resolved. No bowel movement.
Still some dysuria and flank pains. No fever or chills.
Objective Data
-
Labs:
Laboratory Results
03/26/24
06:03
WBC 4.7 L
Hgb 11.1 L
Hct 32.7 L
Plt Count 168
Sodium 138
Potassium 4.6
Chloride 111 H
Carbon Dioxide 21 L
BUN 38 H
Creatinine 1.6 H
Glucose 110 H
Calcium 8.7
Total Bilirubin 0.3
AST 35
ALT 34
Alkaline Phosphatase 57
Vital Signs:
Vital Signs
Temp Pulse Resp BP Pulse Ox
97.9 F 71 16 173/91 99
03/26/24 07:50 03/26/24 07:50 03/26/24 07:50 03/26/24 07:50 03/26/24 08:00
I&O
03/25/24 03/26/24 03/27/24
06:59 06:59 06:59
Intake Total 2640 / 2640 3260 / 3260
Balance 2640 / 2640 3260 / 3260
Review of Systems
-
Respiratory: Denies Cough or Trouble Breathing
Cardiac: Denies Chest Pain
Neuro: Denies Dizzy
Physical Exam
-
General: No Apparent Distress
HEENT: Moist Mucous Membranes
Respiratory: Clear to Auscultation
Cardiac: Regular Rhythm and S1/S2
GI: Soft, Nondistended, Normal Bowel Sounds and Tender (discomfort in epigastic area)
Genito-urinary: Costovertebral Angle Tend (rt )
Neuro: AO x 3
Psych: Calm
Data Reviewed
-
Labs: Labs Reviewed by me
[2024-03-26 11:44] LABS: Glucose - Point of Care 132 mg/dl (70-99)
[2024-03-26] MEDS: NOVOLOG FLEXPEN-LOW RESISTANCE SC (11:47)
[2024-03-26] MEDS: ROCEPHIN 1000 MG IV (12:05)
[2024-03-26] MEDS: STERILE WATER FOR INJECTION 10 ML IV (12:05)
[2024-03-26] MEDS: ASPIR LOW (ENTERIC COATED) 81 MG PO (12:05)
[2024-03-26] MEDS: SYNTHROID 112 MCG PO (12:05)
--- NOTE | 2024-03-26 12:25 | W.PN.NEPH.PH ---
Today's Communication / Plan
-
reduce IVF
Assessment/Plan
-
Assessment:
BAO
HAGMA
Hypoglycemia
HTN
Plan:
Continue IV fluids with saline, reduce rate
Follow basic metabolic panel
Can use bicarbonate fluids if acidosis worsens
-
-
Date of Service: March 26, 2024
CC / HPI / ROS
-
Chief Complaint:
Acute kidney injury
History of Present Illness:
BAO/creatinine down to 1.6
BP stable
Acidosis improving up to 21 with saline
Review of Systems:
Still with abdominal pain no worse or better
No shortness of breath
poor po intake
Labs
-
Labs:
WBC 4.7 10^3/uL (4.8-10.8) L 03/26/24 06:03
RBC 3.45 10^6/uL (4.20-5.40) L 03/26/24 06:03
Hgb 11.1 g/dL (12.0-16.0) L 03/26/24 06:03
Hct 32.7 % (37.0-47.0) L 03/26/24 06:03
Plt Count 168 10^3/uL (130-400) 03/26/24 06:03
Sodium 138 mmol/L (135-145) 03/26/24 06:03
Potassium 4.6 mmol/L (3.5-5.1) 03/26/24 06:03
Chloride 111 mmol/L (98-107) H 03/26/24 06:03
Carbon Dioxide 21 mmol/L (22-30) L 03/26/24 06:03
BUN 38 mg/dl (7-17) H 03/26/24 06:03
Creatinine 1.6 mg/dL (0.6-1.0) H 03/26/24 06:03
eGFR 33.42 03/26/24 06:03
Glucose 110 mg/dl (70-99) H 03/26/24 06:03
Calcium 8.7 mg/dl (8.4-10.2) 03/26/24 06:03
Albumin 3.5 g/dl (3.5-5.0) 03/26/24 06:03
Physical Exam
-
Vital Signs:
Vital Signs
Temp Pulse Resp BP Pulse Ox
97.9 F 71 16 173/91 99
03/26/24 07:50 03/26/24 07:50 03/26/24 07:50 03/26/24 07:50 03/26/24 08:00
Cardiovascular:: Regular rate and rhythm
Respiratory:: Bilateral: Coarse
Lung Excursion:: Normal
Abdomen:: Nontender and Soft
Bowel Sounds:: Normal
Extremity Edema:: None: Bilateral:
[2024-03-26 15:55] VITALS: BP 147/83
--- NOTE | 2024-03-26 16:12 | CM ---
Chart reviewed, patient remains on IV fluids and antibiotics. Patient seen bedside, reports no needs to CM at this time. CM will continue to follow for discharge planning needs.
Plan; home no needs anticipated.
[2024-03-26 16:27] LABS: Glucose - Point of Care 152 mg/dl (70-99)
--- NOTE | 2024-03-26 16:45 | PTCARENOTE ---
03/26- Patient transferred and oriented to room without issue. AAOX3; Skin=CDI; 'hat' placed in toilet for stool collection when possible; patient is medsurg. Patient denies any current complaints or needs at this time.
[2024-03-26] MEDS: NSS IV (20:00)
[2024-03-26] MEDS: TYLENOL 650 MG PO (21:18)
[2024-03-26] MEDS: TOPROL XL 50 MG PO (21:22)
[2024-03-26 21:31] LABS: Glucose - Point of Care 112 mg/dl (70-99)
[2024-03-26 23:25] VITALS: BP 173/98
[2024-03-27] MEDS: NSS 1000 IV (04:08)
[2024-03-27] MEDS: SYNTHROID 112 MCG PO (05:51)
[2024-03-27 07:19] LABS: Blood Urea Nitrogen 25 mg/dl (7-17); Carbon Dioxide 22 mmol/L (22-30); Chloride 109 mmol/L (98-107); Estimated Creatinine Clearance 35 ml/min; Glucose 119 mg/dl (70-99); Potassium 5.4 mmol/L (3.5-5.1); Sodium 139 mmol/L (135-145); eGFR 47.21
[2024-03-27 07:30] VITALS: BP 168/97
[2024-03-27 07:47] LABS: Glucose - Point of Care 141 mg/dl (70-99)
[2024-03-27] MEDS: ASPIR LOW (ENTERIC COATED) 81 MG PO (08:27)
[2024-03-27] MEDS: PROTONIX IV 40 MG IV (08:27)
[2024-03-27] MEDS: NOVOLOG FLEXPEN-LOW RESISTANCE SC ×2 (08:27→11:50)
[2024-03-27] MEDS: TYLENOL 650 MG PO ×3 (09:35→22:14)
[2024-03-27] MEDS: NSS (PRESERVATIVE FREE) 10 ML IV (09:35)
[2024-03-27 11:41] LABS: Glucose - Point of Care 115 mg/dl (70-99)
[2024-03-27] MEDS: ROCEPHIN 1000 MG IV (11:51)
[2024-03-27] MEDS: STERILE WATER FOR INJECTION 10 ML IV (11:51)
[2024-03-27 14:40] LABS: Glucose - Point of Care 177 mg/dl (70-99)
--- NOTE | 2024-03-27 14:42 | W.PN.HOSP.TC ---
Today's Communication/Plan
-
DC planning
Assessment / Plan
Assessment / Plan
#Acute nausea vomiting diarrhea likely secondary to Ozempic versus acute gastroenteritis
#Hx cholecystectomy
-Lipase 352, LFTs at baseline
- CT abdomen pelvis Shows no acute findings other than known cirrhosis and portal hypertension
Initial dose of Ozempic was started on 03/16/2024
- resolving upper GI symptoms . Tolerating diet.
- No diarrhea to collect for specimen for stool culture .
#BAO 2/2 nausea, vomiting, diarrhea
#Hx of Renal stent 03/25/2017 with kidney stone removal
Creat 3.1 was 0.7 in 2022, bun 74
- Improving creatinine/acidosis
- cw IV fluids per renal
- nephrology following
- HOLD metformin 1000 mg twice daily,-HOLD irbesartan 75 mg daily
- CT abdomen pelvis shows no obstructing calculus/obstructive uropathy
- Follow BMP
# dysuria with positive urinalysis suggestive of UTI. Urine culture growing E. coli. Started on ceftriaxone -cw it. Follow blood cultures.
#DM2 with acute hypoglycemia likely secondary to Ozempic with nausea vomiting diarrhea
#Hx Trulicity since 1984 no longer in stock
-Took Ozempic 8 days ago 03/16/24
-Blood sugar was 52 in the emergency department she was treated with oral juice and D10
- No further hypoglycemias. Continue to follow Accu-Cheks.
- HgbA1c 6.4
-HOLD metformin, glimepiride 4 mg twice daily
-Recommend following up with PCP for possible switch to Mounjaro per prior recommendation
# Cirrhosis with portal hypertension
-No evidence of hepatic encephalopathy, GI bleed or ascites.
-Patient being worked up for possible Collado cirrhosis by Dr. Jerica GASTON
#HTN�benign
-Continue metoprolol succinate 50 mg at bedtime
-HOLD irbesartan 75 mg daily
#Hypothyroidism
Continue levothyroxine 112 mcg daily
#HLD
LFTs At baseline
Lovasa 2 capsules p.o. twice daily
#Chronic iron deficiency anemia
No reported iron supplements
Hgb 13.4, MCV 91.6
#Paroxysmal A-fib�status post cryo ablation 2016
#GERD/ duodenal ulcer with GI bleed 2017 secondary to NSAID use
-Continue IV PPI
#Hx chronic diarrhea
#Diverticulosis diverticulitis Hx
# Former nicotine abuse
1/4 pack a day x 18 years stopped 1985
#CVA hx
Hold current aspirin, Lovaza due to nausea vomiting
#Migraines hx -no current headache
#Fibromyalgia
#Osteoarthritis
#DDD
#lumbar stenosis
#Obesity due to excess calorie consumption�BMI 29.3 KG
-Patient currently on weight loss medication
Other PMH:
Left ventricular hypertrophy
ex-smoker
restless leg syndrome
cervical cancer status post hysterectomy
DVT prophylaxis
SCDs
Full code
DC home in am if continued improvment in symptoms, off of IV fluids and continued improvement.
Anticipated Discharge: Within 24 hours
Subjective/Interval History
-
Date of Service: March 27, 2024
Patient feels improved. No vomiting. Tolerating some diet. Resolved diarrhea.
Still some flank pain but improved urination.
Objective Data
-
Labs:
Laboratory Results
03/27/24
06:16
Sodium 139
Potassium 5.4 H
Chloride 109 H
Carbon Dioxide 22
BUN 25 H
Creatinine 1.2 H
Glucose 119 H
Calcium 9.0
Vital Signs:
Vital Signs
Temp Pulse Resp BP Pulse Ox
98.3 F 65 18 168/97 97
03/27/24 07:30 03/27/24 07:30 03/27/24 07:30 03/27/24 07:30 03/27/24 07:30
I&O
03/26/24 03/27/24 03/28/24
06:59 06:59 06:59
Intake Total 3260 / 3260 1590 / 1590
Balance 3259 / 3260 1590 / 1590
Review of Systems
-
Constitutional: Denies Fever
Respiratory: Denies Trouble Breathing
Cardiac: Denies Chest Pain
Neuro: Denies Dizzy
Physical Exam
-
General: No Apparent Distress
HEENT: Moist Mucous Membranes
Respiratory: Clear to Auscultation
Cardiac: Regular Rhythm and S1/S2
GI: Soft and Nontender
Neuro: AO x 3
Psych: Calm
Data Reviewed
-
Labs: Labs Reviewed by me
--- NOTE | 2024-03-27 15:29 | W.PN.NEPH.PH ---
Today's Communication / Plan
-
- off fluids
Assessment/Plan
-
Assessment:
BAO
HAGMA
Hypoglycemia
HTN
Plan:
Cr down to 1.2, peak 3.1
off fluids today
K elevated, s/p lokelma today
Follow basic metabolic panel
-
-
Date of Service: March 27, 2024
CC / HPI / ROS
-
Chief Complaint:
Acute kidney injury
History of Present Illness:
BAO/creatinine down to 1.2
BP stable
Acidosis up to 22
Review of Systems:
Still with abdominal pain no worse or better
No shortness of breath
poor po intake
Labs
-
Labs:
WBC 4.7 10^3/uL (4.8-10.8) L 03/26/24 06:03
RBC 3.45 10^6/uL (4.20-5.40) L 03/26/24 06:03
Hgb 11.1 g/dL (12.0-16.0) L 03/26/24 06:03
Hct 32.7 % (37.0-47.0) L 03/26/24 06:03
Plt Count 168 10^3/uL (130-400) 03/26/24 06:03
Sodium 139 mmol/L (135-145) 03/27/24 06:16
Potassium 5.4 mmol/L (3.5-5.1) H 03/27/24 06:16
Chloride 109 mmol/L (98-107) H 03/27/24 06:16
Carbon Dioxide 22 mmol/L (22-30) 03/27/24 06:16
BUN 25 mg/dl (7-17) H 03/27/24 06:16
Creatinine 1.2 mg/dL (0.6-1.0) H 03/27/24 06:16
eGFR 47.21 03/27/24 06:16
Glucose 119 mg/dl (70-99) H 03/27/24 06:16
Calcium 9.0 mg/dl (8.4-10.2) 03/27/24 06:16
Albumin 3.5 g/dl (3.5-5.0) 03/26/24 06:03
Physical Exam
-
Vital Signs:
Vital Signs
Temp Pulse Resp BP Pulse Ox
98.3 F 65 18 168/97 97
03/27/24 07:30 03/27/24 07:30 03/27/24 07:30 03/27/24 07:30 03/27/24 07:30
Cardiovascular:: Regular rate and rhythm
Respiratory:: Bilateral: CTA
Lung Excursion:: Normal
Abdomen:: Nontender and Soft
Bowel Sounds:: Normal
Extremity Edema:: None: Bilateral:
Pillai Catheter: No
[2024-03-27 15:35] VITALS: BP 160/88
[2024-03-27] MEDS: NOVOLOG FLEXPEN-LOW RESISTANCE 1 UNITS SC (16:14)
--- NOTE | 2024-03-27 18:26 | PTCARENOTE ---
Potassium 5.4 - hospitalist notified
[2024-03-27 21:09] LABS: Glucose - Point of Care 129 mg/dl (70-99)
[2024-03-27] MEDS: TOPROL XL 50 MG PO (21:25)
[2024-03-27] MEDS: MELATONIN PO (22:36)
[2024-03-27] MEDS: MELATONIN 5 MG PO (22:49)
--- NOTE | 2024-03-27 22:54 | PTCARENOTE ---
MIXED [employer]IMAL VETERINARIAN made aware of patient increased BPs with slight headaches. Patient denies chest pain or blurry vision. Per MIXED ANIMAL VETERINARIAN, due to renal function at the moment, can not order blood pressure medication and to give Tylenol PRN with STAT melatonin.
[2024-03-27 23:16] VITALS: BP 170/101
[2024-03-28] MEDS: SYNTHROID 112 MCG PO (05:56)
[2024-03-28 06:59] LABS: Blood Urea Nitrogen 25 mg/dl (7-17); Calcium 9.1 mg/dl (8.4-10.2); Carbon Dioxide 23 mmol/L (22-30); Chloride 107 mmol/L (98-107); Estimated Creatinine Clearance 39 ml/min; Glucose 129 mg/dl (70-99); Sodium 138 mmol/L (135-145)
[2024-03-28 07:05] LABS: Potassium 5.1 mmol/L (3.5-5.1)
[2024-03-28 07:29] LABS: Glucose - Point of Care 144 mg/dl (70-99)
[2024-03-28 07:30] VITALS: BP 183/99
[2024-03-28] MEDS: ASPIR LOW (ENTERIC COATED) 81 MG PO (07:48)
[2024-03-28] MEDS: PROTONIX 40 MG PO (07:48)
[2024-03-28] MEDS: NOVOLOG FLEXPEN-LOW RESISTANCE SC ×3 (07:50→17:21)
[2024-03-28] MEDS: TYLENOL 650 MG PO ×2 (07:51→20:10)
[2024-03-28] MEDS: APRESOLINE 5 MG IV ×2 (09:06→22:10)
--- NOTE | 2024-03-28 11:46 | PTCARENOTE ---
AM BP 183/99- hospitalist aware . Received 5mg IV Hydralazinw as ordered , recheck 170/91.
[2024-03-28 11:50] LABS: Glucose - Point of Care 95 mg/dl (70-99)
[2024-03-28] MEDS: STERILE WATER FOR INJECTION 10 ML IV (13:19)
[2024-03-28] MEDS: ROCEPHIN 1000 MG IV (13:20)
--- NOTE | 2024-03-28 13:43 | W.PN.HOSP.TC ---
Today's Communication/Plan
-
Monitor vitals
See plan
Monitor blood pressure and restart metoprolol later today if blood pressure still elevated
Hydralazine as needed
Restart glimepiride
Monitor renal function
Assessment / Plan
Assessment / Plan
#Acute nausea vomiting diarrhea likely secondary to Ozempic versus acute gastroenteritis
#Hx cholecystectomy
-Lipase 352, LFTs at baseline
- CT abdomen pelvis Shows no acute findings other than known cirrhosis and portal hypertension
Initial dose of Ozempic was started on 03/16/2024
- resolving upper GI symptoms . Tolerating diet.
- No diarrhea to collect for specimen for stool culture .
#BAO 2/2 nausea, vomiting, diarrhea
#Hx of Renal stent 03/25/2017 with kidney stone removal
Creat 3.1 on admission, was 0.7 in 2022, bun 74
- Improving creatinine/acidosis
- nephrology following
- HOLD metformin 1000 mg twice daily,-HOLD irbesartan 75 mg daily
- CT abdomen pelvis shows no obstructing calculus/obstructive uropathy
- Follow BMP
# dysuria with positive urinalysis suggestive of UTI. Urine culture growing E. coli. Started on ceftriaxone -cw it. Follow blood cultures.
#DM2 with acute hypoglycemia likely secondary to Ozempic with nausea vomiting diarrhea
#Hx Trulicity since 1984 no longer in stock
-Took Ozempic 8 days ago 03/16/24
-Blood sugar was 52 in the emergency department she was treated with oral juice and D10
- No further hypoglycemias. Continue to follow Accu-Cheks.
- HgbA1c 6.4
-HOLD metformin, restart glimepiride 4 mg twice daily
-Recommend following up with PCP for possible switch to Mounjaro per prior recommendation
# Cirrhosis with portal hypertension
-No evidence of hepatic encephalopathy, GI bleed or ascites.
-Patient being worked up for possible Collado cirrhosis by Dr. Salguti GI
#HTN�benign
-Continue metoprolol succinate 50 mg at bedtime
-HOLD irbesartan 75 mg daily
#Hypothyroidism
Continue levothyroxine 112 mcg daily
#HLD
LFTs At baseline
Lovasa 2 capsules p.o. twice daily
#Chronic iron deficiency anemia
No reported iron supplements
#Paroxysmal A-fib�status post cryo ablation 2016
#GERD/ duodenal ulcer with GI bleed 2017 secondary to NSAID use
-Continue PPI
#Hx chronic diarrhea
#Diverticulosis diverticulitis Hx
# Former nicotine abuse
1/4 pack a day x 18 years stopped 1985
#CVA hx
aspirin, Lovaza due to nausea vomiting
#Migraines hx -no current headache
#Fibromyalgia
#Osteoarthritis
#DDD
#lumbar stenosis
#Obesity due to excess calorie consumption�BMI 29.3 KG
-Patient currently on weight loss medication
Other PMH:
Left ventricular hypertrophy
ex-smoker
restless leg syndrome
cervical cancer status post hysterectomy
DVT prophylaxis
SCDs
Full code
General: No Apparent Distress
HEENT: Moist Mucous Membranes
Respiratory: Clear to Auscultation
Cardiac: Regular Rhythm and S1/S2
GI: Soft and Nontender
Neuro: AO x 3
Psych: Calm
Anticipated Discharge: Within 24 hours
Subjective/Interval History
-
Date of Service: March 28, 2024
has headache
Objective Data
-
Labs:
Laboratory Results
03/28/24
05:33
Sodium 138
Potassium 5.1
Chloride 107
Carbon Dioxide 23
BUN 25 H
Creatinine 1.1 H
Glucose 129 H
Calcium 9.1
Vital Signs:
Vital Signs
Temp Pulse Resp BP Pulse Ox
98.2 F 64 18 183/99 95
03/28/24 07:30 03/28/24 07:30 03/28/24 07:30 03/28/24 07:30 03/28/24 07:30
I&O
03/27/24 03/28/24 03/29/24
06:59 06:59 06:59
Intake Total 1590 / 1590 860 / 860
Balance 1590 / 1590 860 / 860
[2024-03-28 15:30] VITALS: BP 158/93
--- NOTE | 2024-03-28 15:35 | W.PN.NEPH.PH ---
Today's Communication / Plan
-
- start amlodipine
Assessment/Plan
-
Assessment:
BAO
HAGMA
Hypoglycemia
HTN
Plan:
Cr down to 1.1, peak 3.1
off fluids
K normalized after BM
Follow basic metabolic panel
blood pressures noted to be elevated, will initiate patient on amlodipine
- continue to hold irbesartan on discharge due to hyperK and recent BAO
-
-
Date of Service: March 28, 2024
CC / HPI / ROS
-
Chief Complaint:
Acute kidney injury
History of Present Illness:
BAO/creatinine down to 1.1
BP stable
Acidosis up to 23
Review of Systems:
abd pain reoslved
No shortness of breath
PO intake improving
Labs
-
Labs:
WBC 4.7 10^3/uL (4.8-10.8) L 03/26/24 06:03
RBC 3.45 10^6/uL (4.20-5.40) L 03/26/24 06:03
Hgb 11.1 g/dL (12.0-16.0) L 03/26/24 06:03
Hct 32.7 % (37.0-47.0) L 03/26/24 06:03
Plt Count 168 10^3/uL (130-400) 03/26/24 06:03
Sodium 138 mmol/L (135-145) 03/28/24 05:33
Potassium 5.1 mmol/L (3.5-5.1) 03/28/24 05:33
Chloride 107 mmol/L (98-107) 03/28/24 05:33
Carbon Dioxide 23 mmol/L (22-30) 03/28/24 05:33
BUN 25 mg/dl (7-17) H 03/28/24 05:33
Creatinine 1.1 mg/dL (0.6-1.0) H 03/28/24 05:33
eGFR 52.40 03/28/24 05:33
Glucose 129 mg/dl (70-99) H 03/28/24 05:33
Calcium 9.1 mg/dl (8.4-10.2) 03/28/24 05:33
Albumin 3.5 g/dl (3.5-5.0) 03/26/24 06:03
Physical Exam
-
Vital Signs:
Vital Signs
Temp Pulse Resp BP Pulse Ox
98.2 F 67 18 158/93 97
03/28/24 15:30 03/28/24 15:30 03/28/24 15:30 03/28/24 15:30 03/28/24 15:30
Cardiovascular:: Regular rate and rhythm
Respiratory:: Bilateral: CTA
Lung Excursion:: Normal
Abdomen:: Nontender and Soft
Bowel Sounds:: Normal
Extremity Edema:: None: Bilateral:
Pillai Catheter: No
[2024-03-28] MEDS: NORVASC 5 MG PO (16:10)
[2024-03-28 16:42] LABS: Glucose - Point of Care 129 mg/dl (70-99)
[2024-03-28] MEDS: AMARYL 4 MG PO (17:20)
[2024-03-28 20:00] VITALS: BP 159/84
[2024-03-28 21:07] LABS: Glucose - Point of Care 77 mg/dl (70-99)
[2024-03-28 22:00] VITALS: BP 166/91
[2024-03-28] MEDS: MELATONIN 5 MG PO (22:09)
[2024-03-28] MEDS: TOPROL XL 50 MG PO (22:09)
[2024-03-29] MEDS: TYLENOL 650 MG PO (03:29)
[2024-03-29] MEDS: SYNTHROID 112 MCG PO (05:40)
[2024-03-29 07:00] VITALS: BP 170/85
[2024-03-29 07:28] LABS: Blood Urea Nitrogen 25 mg/dl (7-17); Calcium 9.3 mg/dl (8.4-10.2); Carbon Dioxide 20 mmol/L (22-30); Chloride 106 mmol/L (98-107); Estimated Creatinine Clearance 43 ml/min; Glucose 160 mg/dl (70-99); Potassium 4.5 mmol/L (3.5-5.1); Sodium 136 mmol/L (135-145); eGFR 58.75
[2024-03-29 07:44] LABS: Glucose - Point of Care 147 mg/dl (70-99)
[2024-03-29] MEDS: NOVOLOG FLEXPEN-LOW RESISTANCE SC ×2 (07:54→11:28)
[2024-03-29] MEDS: PROTONIX 40 MG PO (08:16)
[2024-03-29] MEDS: ASPIR LOW (ENTERIC COATED) 81 MG PO (08:16)
[2024-03-29] MEDS: AMARYL 4 MG PO (08:16)
[2024-03-29] MEDS: NORVASC 5 MG PO (08:16)
--- NOTE | 2024-03-29 09:41 | W.PN.NEPH.PH ---
Today's Communication / Plan
-
restart ARB
Assessment/Plan
-
Assessment:
BAO
HAGMA
Hypoglycemia
HTN
Plan:
restart Avapro
BMP next week
for dc
-
-
Date of Service: March 29, 2024
CC / HPI / ROS
-
Chief Complaint:
Acute kidney injury
History of Present Illness:
BAO/creatinine down to 1.0
BP stable high
K 4.5
Review of Systems:
no pain
No shortness of breath
PO intake improving
Labs
-
Labs:
WBC 4.7 10^3/uL (4.8-10.8) L 03/26/24 06:03
RBC 3.45 10^6/uL (4.20-5.40) L 03/26/24 06:03
Hgb 11.1 g/dL (12.0-16.0) L 03/26/24 06:03
Hct 32.7 % (37.0-47.0) L 03/26/24 06:03
Plt Count 168 10^3/uL (130-400) 03/26/24 06:03
Sodium 136 mmol/L (135-145) 03/29/24 06:15
Potassium 4.5 mmol/L (3.5-5.1) 03/29/24 06:15
Chloride 106 mmol/L (98-107) 03/29/24 06:15
Carbon Dioxide 20 mmol/L (22-30) L 03/29/24 06:15
BUN 25 mg/dl (7-17) H 03/29/24 06:15
Creatinine 1.0 mg/dL (0.6-1.0) 03/29/24 06:15
eGFR 58.75 03/29/24 06:15
Glucose 160 mg/dl (70-99) H 03/29/24 06:15
Calcium 9.3 mg/dl (8.4-10.2) 03/29/24 06:15
Albumin 3.5 g/dl (3.5-5.0) 03/26/24 06:03
Physical Exam
-
Vital Signs:
Vital Signs
Temp Pulse Resp BP Pulse Ox
98.4 F 65 16 170/85 98
03/29/24 07:00 03/29/24 07:00 03/29/24 07:00 03/29/24 08:16 03/29/24 07:00
Cardiovascular:: Regular rate and rhythm
Respiratory:: Bilateral: Coarse
Lung Excursion:: Normal
Abdomen:: Nontender and Soft
Bowel Sounds:: Normal
Extremity Edema:: None: Bilateral:
[2024-03-29] MEDS: TYLENOL 1000 MG PO (09:46)
[2024-03-29 09:55] VITALS: BP 172/82
[2024-03-29] MEDS: AVAPRO 75 MG PO (10:15)
--- NOTE | 2024-03-29 11:09 | W.PN.HOSP.TC ---
Addendum entered and electronically signed by Keon De Jesus MD 03/29/24 15:14:
Blood pressure now improving; will discharge patient home
Time of discharge 38 minutes
Addendum entered and electronically signed by Keon De Jesus MD 03/29/24 12:51:
Finished antibiotic treatment for urinary tract infection. Will DC further antibiotics
Original Note:
Today's Communication/Plan
-
Monitor vital signs and see plan
Monitor blood pressure closely
If Blood pressure stable then we will discharge home today
Assessment / Plan
Assessment / Plan
#Acute nausea vomiting diarrhea likely secondary to Ozempic versus acute gastroenteritis
#Hx cholecystectomy
-Lipase 352, LFTs at baseline
- CT abdomen pelvis Shows no acute findings other than known cirrhosis and portal hypertension
Initial dose of Ozempic was started on 03/16/2024
- resolving upper GI symptoms . Tolerating diet.
- No diarrhea to collect for specimen for stool culture .
#BAO 2/2 nausea, vomiting, diarrhea
#Hx of Renal stent 03/25/2017 with kidney stone removal
Creat 3.1 on admission, was 0.7 in 2022, bun 74
- Improving creatinine/acidosis
- nephrology following
- HOLD metformin 1000 mg twice daily,-restart irbesartan 75 mg daily
- CT abdomen pelvis shows no obstructing calculus/obstructive uropathy
- Follow BMP
# dysuria with positive urinalysis suggestive of UTI. Urine culture growing E. coli. Started on ceftriaxone -cw it. Follow blood cultures.
#DM2 with acute hypoglycemia likely secondary to Ozempic with nausea vomiting diarrhea
#Hx Trulicity since 1984 no longer in stock
-Took Ozempic 8 days ago 03/16/24
-Blood sugar was 52 in the emergency department she was treated with oral juice and D10
- No further hypoglycemias. Continue to follow Accu-Cheks.
- HgbA1c 6.4
-HOLD metformin, restart glimepiride 4 mg twice daily
-Recommend following up with PCP for possible switch to Mounjaro per prior recommendation
# Cirrhosis with portal hypertension
-No evidence of hepatic encephalopathy, GI bleed or ascites.
-Patient being worked up for possible Collado cirrhosis by Dr. Pizano GI
#HTN�benign
-Continue metoprolol succinate 50 mg at bedtime
-irbesartan 75 mg daily
also added amlodipine
#Hypothyroidism
Continue levothyroxine 112 mcg daily
#HLD
LFTs At baseline
Lovasa 2 capsules p.o. twice daily
#Chronic iron deficiency anemia
No reported iron supplements
#Paroxysmal A-fib�status post cryo ablation 2016
#GERD/ duodenal ulcer with GI bleed 2017 secondary to NSAID use
-Continue PPI
#Hx chronic diarrhea
#Diverticulosis diverticulitis Hx
# Former nicotine abuse
1/4 pack a day x 18 years stopped 1985
#CVA hx
aspirin, Lovaza due to nausea vomiting
#Migraines hx -no current headache
#Fibromyalgia
#Osteoarthritis
#DDD
#lumbar stenosis
#Obesity due to excess calorie consumption�BMI 29.3 KG
-Patient currently on weight loss medication
Other PMH:
Left ventricular hypertrophy
ex-smoker
restless leg syndrome
cervical cancer status post hysterectomy
DVT prophylaxis
SCDs
Full code
General: No Apparent Distress
HEENT: Moist Mucous Membranes
Respiratory: Clear to Auscultation
Cardiac: Regular Rhythm and S1/S2
GI: Soft and Nontender
Neuro: AO x 3
Psych: Calm
Anticipated Discharge: Today
Subjective/Interval History
-
Date of Service: March 29, 2024
denies nausea
Objective Data
-
Labs:
Laboratory Results
03/29/24
06:15
Sodium 136
Potassium 4.5
Chloride 106
Carbon Dioxide 20 L
BUN 25 H
Creatinine 1.0
Glucose 160 H
Calcium 9.3
Vital Signs:
Vital Signs
Temp Pulse Resp BP Pulse Ox
98.4 F 65 16 172/82 98
03/29/24 07:00 03/29/24 07:00 03/29/24 07:00 03/29/24 09:55 03/29/24 07:00
I&O
03/28/24 03/29/24 03/30/24
06:59 06:59 06:59
Intake Total 860 / 860 420 / 420
Balance 860 / 860 420 / 420
[2024-03-29 11:27] LABS: Glucose - Point of Care 126 mg/dl (70-99)
[2024-03-29 11:34] VITALS: BP 158/90
[2024-03-29] MEDS: ROCEPHIN 1000 MG IV (13:06)
[2024-03-29] MEDS: FIORICET 1 TAB PO (13:06)
[2024-03-29] MEDS: STERILE WATER FOR INJECTION 10 ML IV (13:07)
[2024-03-29 13:13] VITALS: BP 153/88
[2024-03-29 15:00] VITALS: BP 154/90
--- NOTE | 2024-03-29 15:16 | W.DCSUMMARY ---
Discharge Summary
Discharge Data
Date of Admission: 03/24/24
Date of Discharge: 03/29/24
-
Pending Results: No
Hospital Course
73-year-old female with past medical history of diabetes mellitus, cirrhosis with portal hypertension, hypertension, hypothyroidism, lipidemia, chronic conditions anemia, paroxysmal atrial fibrillation, GERD, duodenal ulcer, chronic diarrhea, CVA,
migraine, fibromyalgia, osteoarthritis, lumbar stenosis, obesity, restless leg syndrome, cervical cancer status post hysterectomy came to the hospital with nausea, vomiting abdominal pain which was likely thought was secondary to recent Ozempic use
or acute gastroenteritis. Patient was instructed to not take Ozempic anymore and to follow-up with her kiln tender outpatient. Her symptoms continue to improve with conservative management. CT scan was done which did not show any acute
findings other than known cirrhosis and portal hypertension. On admission patient also had acute kidney injury which was likely thought was secondary to dehydration from nausea, vomiting and diarrhea. Patient's symptoms continue to improve with
fluids. Patient was also seen by nephrology throughout hospitalization and initially had a irbesartan held due to hyperkalemia and acute kidney injury. It was sudden was eventually restarted prior to discharge. She also had a urinary tract
infection where urine culture grew E. coli which was treated with antibiotics. Patient finished antibiotic treatment prior to discharge. For her blood pressure since it was uncontrolled amlodipine was added. On discharge her blood pressure was
improving and she was instructed to follow-up with primary care provider for further blood pressure medication titration. Once her symptoms continue to improve and she was tolerating regular diet, she was then discharged home with instructions to
follow-up with all her physicians outpatient.
Discharge Plan
-
Patient Disposition: Home (Routine Discharge)
Discharge Diagnosis/Procedures: Acute nausea and vomiting likely secondary to Ozempic use or acute gastroenteritis
Acute kidney injury
Essential hypertension
Diet: Diabetic, Carb Controlled
Activity: As tolerated
Driving Restrictions: As prior to admission
Bathing Restrictions: None
Blood Work: BMP next week with primary care provider
Referrals:
Norberto Perez MD [Family Provider] - in less than 1 week
Prescriptions:
New
acetaminophen 325 mg Tablet
650 mg PO Q6HPRN PRN (Reason: mild pain/ fever>100.5F) Qty: 0 0RF
amlodipine 5 mg Tablet
5 mg PO DAILY Qty: 30 0RF
pantoprazole 40 mg Tablet,Delayed Release (Dr/Ec)
40 mg PO DAILY Qty: 30 0RF
Continued
metoprolol succinate 50 MG tablet extended release 24 hr
50 mg PO HS
cyanocobalamin (vitamin B-12) 1,000 MCG tablet
1,000 mcg PO DAILY
glimepiride 4 MG tablet
4 mg PO BID
Patient Comments:
Her dose of this medication was just changed on 03/09/[address] Dubon.
levothyroxine 112 MCG tablet
112 mcg PO DAILY
L.acidoph, paracasei,B. lactis 1 EACH capsule
1 ea PO DAILY
metformin 1,000 MG tablet
1,000 mg PO BID Qty: 0 0RF
therapeutic multivitamin Tablet
1 tab PO DAILY Qty: 0
omega-3 acid ethyl esters [Lovaza] 1 gram Capsule
2 cap PO BID Qty: 0
biotin 5,000 MCG tablet,disintegrating
5,000 mcg PO DAILY
irbesartan [Avapro] 75 mg Tablet
75 mg PO DAILY
aspirin 81 mg Tablet,Delayed Release (Dr/Ec)
81 mg PO DAILY
cholecalciferol (vitamin D3) [Vitamin D3] 25 mcg (1,000 unit) Tablet
25 mcg PO Q48H
Discontinued
omeprazole 20 mg Capsule,Delayed Release(Dr/Ec)
20 mg PO DAILYPRN PRN (Reason: gerd)
Discharge Orders:
Discharge Patient (As Directed); Ordered 03/29/24
Ordered By: Keon De Jesus
Discharge Date and Time
Print Language: BELARUSIAN
== END 2024-03-29 16:39 | disposition home or self-care (01) | DRG 394 ==
LOC: 4 WEST ACU 14:14
PROVIDERS: Clinical Nurse Specialist Family Health; ADMITTING PHYSICIAN Internal Medicine; ATTENDING PHYSICIAN Internal Medicine; CONSULT PHYSICIAN Student in an Organized Health Care Education/Training Program; EMERGENCY PHYSICIAN Emergency Medicine; FAMILY PHYSICIAN Family Medicine
DX: K52.1 Toxic gastroenteritis and colitis (principal); E87.20 Acidosis, unspecified; N17.9 Acute kidney failure, unspecified; K76.6 Portal hypertension; N39.0 Urinary tract infection, site not specified; T50.995A Adverse effect of other drugs, medicaments and biological substances, initial encounter; E78.00 Pure hypercholesterolemia, unspecified; E11.649 Type 2 diabetes mellitus with hypoglycemia without coma; G43.909 Migraine, unspecified, not intractable, without status migrainosus; Y92.9 Unspecified place or not applicable; K76.0 Fatty (change of) liver, not elsewhere classified; E03.9 Hypothyroidism, unspecified; I11.9 Hypertensive heart disease without heart failure; M19.90 Unspecified osteoarthritis, unspecified site; K52.9 Noninfective gastroenteritis and colitis, unspecified; E87.5 Hyperkalemia; K21.9 Gastro-esophageal reflux disease without esophagitis; D50.9 Iron deficiency anemia, unspecified; M79.7 Fibromyalgia; K74.60 Unspecified cirrhosis of liver; B96.20 Unspecified Escherichia coli [E. coli] as the cause of diseases classified elsewhere; G25.81 Restless legs syndrome; M51.36 Other intervertebral disc degeneration, lumbar region; M48.061 Spinal stenosis, lumbar region without neurogenic claudication; E66.09 Other obesity due to excess calories; I48.0 Paroxysmal atrial fibrillation; Z96.641 Presence of right artificial hip joint; Z79.84 Long term (current) use of oral hypoglycemic drugs; Z87.891 Personal history of nicotine dependence; Z87.442 Personal history of urinary calculi; Z87.19 Personal history of other diseases of the digestive system; Z90.49 Acquired absence of other specified parts of digestive tract; Z79.85 Long-term (current) use of injectable non-insulin antidiabetic drugs; Z86.73 Personal history of transient ischemic attack (TIA), and cerebral infarction without residual deficits; Z68.30 Body mass index [BMI] 30.0-30.9, adult; Z85.820 Personal history of malignant melanoma of skin; Z88.5 Allergy status to narcotic agent; Z88.2 Allergy status to sulfonamides; Z88.6 Allergy status to analgesic agent; Z88.1 Allergy status to other antibiotic agents; Z91.040 Latex allergy status; Z82.49 Family history of ischemic heart disease and other diseases of the circulatory system; Z80.1 Family history of malignant neoplasm of trachea, bronchus and lung; Z82.0 Family history of epilepsy and other diseases of the nervous system; Z81.3 Family history of other psychoactive substance abuse and dependence; Z79.890 Hormone replacement therapy; Z79.82 Long term (current) use of aspirin
CPT/HCPCS: 74176; 80048; 80053; 80061; 81003; 81015; 82010; 82248; 82805; 82962; 83036; 83605; 83690; 85025; 87040; 87045; 87046; 87086; 87088; 87186; 87324; 87427; 87449; 89055; 96361; 96374; 97165; 99285

== ENCOUNTER → 2024-04-04 13:06 | Outpatient (REF) | payer MEDICARE, BC, SELFPAY | LOC: RAD 13:06 | PROVIDERS: ATTENDING PHYSICIAN Nurse Practitioner; FAMILY PHYSICIAN Family Medicine | DX: K74.60 Unspecified cirrhosis of liver (principal) | CPT/HCPCS: 76700 ==

== ENCOUNTER → 2024-04-26 10:54 | Outpatient (REF) | payer MEDICARE, BC, SELFPAY | LOC: RAD 10:54 | PROVIDERS: ATTENDING PHYSICIAN Internal Medicine Gastroenterology; FAMILY PHYSICIAN Family Medicine | DX: R19.7 Diarrhea, unspecified (principal) | CPT/HCPCS: 74018 ==

== ENCOUNTER → 2024-06-20 06:44 | Day surgery (SDC) | payer MEDICARE, BC, SELFPAY ==
[2024-06-20 13:02] LABS: Glucose - Point of Care 101 mg/dl (70-99)
== END ==
LOC: GI 06:44
PROVIDERS: ATTENDING PHYSICIAN Internal Medicine Gastroenterology
DX: K74.60 Unspecified cirrhosis of liver (principal); K44.9 Diaphragmatic hernia without obstruction or gangrene
CPT/HCPCS: 43235; 82962

== ENCOUNTER → 2025-01-02 14:52 | Outpatient (REF) | payer MEDICARE, BC, SELFPAY | LOC: WDC 14:52 | PROVIDERS: ATTENDING PHYSICIAN Obstetrics & Gynecology Gynecology; FAMILY PHYSICIAN Family Medicine | DX: Z12.31 Encounter for screening mammogram for malignant neoplasm of breast (principal) | CPT/HCPCS: 77063; 77067 ==

== ENCOUNTER 2025-10-21 19:44 | Inpatient (IN) | payer MEDICARE, BC, SELFPAY ==
[2025-10-21] VITALS (11 sets, daily range): BP systolic 109–124; BP diastolic 50–84
--- NOTE | 2025-10-21 12:25 | CON.GI ---
Consultation
-
Date/Time Consultation Requested: 10/21/25
Date/Time Consultation Performed: 10/21/25
Requesting Provider:
Performing Provider:
Reason for Consultation: Rectal bleeding
Medical History
Chief Complaint / HPI
Chief Complaint: Rectal bleeding
History of Present Illness:
Sara was seen in the office for rectal bleeding starting last night.� She reports that she was at Visiting her daughter and after dinner last night, she had an urge to have a bowel movement. She went to the bathroom and had maroon blood with little
stool.� This happened multiple times through the night and even before she came for the office visit today.� Previous history of diverticular bleeding in 2018 but nothing since.� She has history of multiple loose stool, about 4-5 soft to loose stool
on a daily basis, incomplete evacuation with some gas and bloating.� No pushing or straining.� She takes colestipol 1 tablet daily and pancreatic enzyme supplements 1 tablet 4 times a day.� She has urgency, leakage and staining of the underwear as
well.� Some lower abdominal discomfort which is better after bowel movements.� No nausea or vomiting.� Takes pantoprazole 40 mg a day, some heartburn during the night but not during the day.� No trouble swallowing.� Does not take any NSAIDs.
She was diagnosed with compensated cirrhosis of the liver, EGD in 2023 without any evidence of varices. She was supposed to see Dr. Sparks but apparently never got a call from their office in spite of leaving a few messages.
She does have history of duodenal ulcers, nonbleeding on upper endoscopy in 2017 but most recent endoscopy in 2023 without any ulcers in the stomach or duodenum.
She lost about 5 pounds since last visit.
MR elastography 2023 showing cirrhosis, abdominal ultrasound done in 2023 and not since. She was last seen in 2019 for April.� Alpha-fetoprotein in August 2024 in normal range.
Previous GI history:
EGD 2023-no varices, HH noted.
she has had gastric emptying study that was slightly delayed. Pancreatic elastase that was low showing pancreatic insufficiency. Elevated fecal calprotectin of 144. Negative celiac panel, AMA, ceruloplasmin, ferritin as well as negative hepatitis
B&C. Alpha-fetoprotein was 0.9. Had a FibroScan as well as an MR elastography that both showed cirrhosis.
She was a previous Dr. Klein patient.
She reports history of diarrhea for at least 5 to 6 years, prior to that no episodes of diarrhea. Many years ago she was in fact constipated and increased fiber in the diet to regulate her bowels.
Reviewing labs, hemoglobin since 2014 has been intermittently low, in February 2023, hemoglobin of 10.1, prior to that in 2020, it was briefly low at 11.6, in 2017 it went down to 7.9, 2015 the lowest it was was 9.7. In between, it would normalize
again. Iron saturation low.
Also noted intermittent elevation in LFTs, mainly transaminases since 2007.
TTG IgA was negative, antiactin antibody was negative, HORTENCIA positive in 2008.
Colonoscopy July [address] Klein for chronic diarrhea and rectal bleeding, diverticulosis, otherwise normal colon, biopsies without any microscopic colitis.
Upper GI with small bowel follow-through 02/2023, reflux to the proximal third of the esophagus but otherwise normal study.
CT scan of the abdomen and pelvis with oral and IV contrast 10/2021, unremarkable.
Previous GI studies:
08/2023 labs: Negative celiac panel, AMA, ceruloplasmin, ferritin, hepatitis B and C. Alpha-fetoprotein 0.9
Fecal Frandy Pro 144. pancreatic elastase 45 (low)
12/13/2023 MR elastography: Stage IV fibrosis or cirrhosis. Normal hepatic fat quantification of 5.7%. Normal hepatic iron. Lobular contour of the surface of the liver suggesting cirrhosis. There is recannulization of the periumbilical vein. Consider
MRI abdomen without and with contrast to evaluate for hepatocellular screening with laboratory testing in the proper clinical setting.
10/27/23 FibroScan: iven elevated LFTs, a liver stiffness measurement of 43.5 kPa, with an IQR of 21%, correlates to a METAVIR fibrosis score of F4, cirrhosis with clinically significant portal hypertension.(*elevated IQR, however 43.5 kPa is very
high. Suspect cirrhosis, if any question, consider MRElastography/FIB4) recall tach
10/13/2023 gastric emptying study: Findings suspicious for gastroparesis. Delayed 20% remained at the end of the study (less than 10% within normal limits)
Colonoscopy in [address] Dr. Cheung, for rectal bleeding, clotted blood in the sigmoid colon, diverticulosis noted but otherwise unremarkable study.
Upper endoscopy in 2018 Dr. Sethi, for anemia, mild erythema in the antrum, nonbleeding duodenal ulcers in the bulb, no H. pylori or celiac disease.
Colonoscopy for screening in 2017, Dr. Sethi, 6 mm ascending colon polyp , tubular adenoma, removed and diverticulosis
Upper endoscopy in 2017 again for anemia and GI bleeding, irregular Z-line, antral erythema, no evidence of eosinophilic esophagitis, Devine's, H. pylori or celiac disease.
Colonoscopy for screening in 2008, diverticulosis and internal hemorrhoids noted.
CT scan in 2018, fatty liver noted.
Abdominal ultrasound in 2017, fatty liver noted
Initial fatty liver noted on ultrasound in 2007.
Past Medical History
Past Medical History: GERD, HTN, Hypercholesterolemia and NIDDM (Cirrhosis likely related to MAFLD, Cervical Cancer - 1976, Paroxysmal cardiac arrhythmia, CAD in [place] artery, Paroxysmal atrial fibrillation, Chronic urticaria, Hypothyroidism due
to Jean Marie's thyroiditis, Serum calcium elevated, Aortic atherosclerosis, Spinal stenosis of lumbar region, Lipoma)
Past Surgical History: Appendectomy (Sigmoid resection for diverticulitis, cholecystectomy) and Cholecystectomy (Sigmoid resection for diverticulitis)
Social History
Tobacco: Former Smoker
Alcohol: None
Family History
Family History: Reviewed & Not Pertinent
Allergies / Home Medications
Allergy/AdvReac Type Severity Reaction Status Date / Time
latex (Latex) Allergy breathing Verified 03/24/24 09:46
problems,
Rash
Hives,swelling
Sulfa (Sulfonamide Allergy short of Verified 03/24/24 09:46
Antibiotics) breath
sulfisoxazole Allergy SHORTNESS Verified 03/24/24 09:46
OF BREATH
FROM SULFA
ABX
carvedilol (From Coreg) AdvReac Nausea Verified 03/24/24 09:46
cephalexin (From Keflex) AdvReac Vomiting Verified 03/24/24 09:46
ciprofloxacin (From Cipro) AdvReac Nausea / Verified 03/24/24 09:46
Vomiting
codeine AdvReac severe Verified 03/24/24 09:46
vomiting
hydrocodone AdvReac Nausea / Verified 03/24/24 09:46
Vomiting
levofloxacin (From Levaquin) AdvReac Tendonitis, Verified 03/24/24 09:46
Myalgias
morphine AdvReac Patient Verified 03/24/24 09:46
feels that
she can
handle
morphine
niacin AdvReac red Verified 03/24/24 09:46
rash;skin
gets hot
NSAIDS (Non-Steroidal AdvReac GI Verified 03/24/24 09:46
Anti-Inflamma bleeding -
needed
transfusions
oxycodone HCl (From Percocet) AdvReac Vomiting Verified 03/24/24 09:46
tramadol HCl (From Ultram) AdvReac Nausea / Verified 03/24/24 09:46
Vomiting
�Medication �Instructions �Recorded
L.acidoph,paracasei,B.animalis 10 1 ea PO DAILY Gastrointestinal 02/10/17
billion cell capsule issue
cyanocobalamin (vitamin B-12) 1,000 mcg PO DAILY Supplement 02/10/17
1,000 mcg tablet
glimepiride 4 mg tablet 4 mg PO BID Diabetes 02/10/17
levothyroxine 112 mcg tablet 112 mcg PO DAILY Thyroid 02/10/17
metoprolol succinate 50 mg 50 mg PO HS Blood pressure 02/10/17
tablet,extended release 24 hr
metformin 1,000 mg tablet 1,000 mg PO BID #0 tabs 02/15/18
biotin 5,000 mcg disintegrating 5,000 mcg PO DAILY Supplement 02/11/21
tablet
omega-3 acid ethyl esters 1 gram 2 cap PO BID High cholesterol ##0 02/11/21
capsule (Lovaza)
therapeutic multivitamin 1 tab PO DAILY Supplement ##0 02/11/21
irbesartan 75 mg tablet (Avapro) 75 mg PO DAILY Blood Pressure 03/02/23
aspirin 81 mg tablet,delayed 81 mg PO DAILY Blood Clot 03/24/24
release Prevention/Tx
cholecalciferol (vitamin D3) 25 25 mcg PO Q48H Supplement 03/24/24
mcg (1,000 unit) tablet (Vitamin
D3)
acetaminophen 325 mg tablet 650 mg (2 x 325 mg) PO Q6HPRN PRN 03/29/24
mild pain/ fever>100.5F #0 tabs
amlodipine 5 mg tablet 5 mg PO DAILY #30 tabs 03/29/24
pantoprazole 40 mg tablet,delayed 40 mg PO DAILY #30 tabs 03/29/24
release
Review of Systems
-
All other systems: A 12 pt ROS was Negative except as stated above in HPI
Physical Exam
Exam
GI: Soft, Non Tender and Non Distended
Rectal: Maroon Stools
Results
Diagnostic Image Results: As above
Prior GI Procedures:
EGD:
Colonoscopy:
Assessment / Plan
-
75-year-old female with multiple medical problems including compensated liver disease with cirrhosis, hypertension, high cholesterol, diabetes, history of nonbleeding duodenal ulcers, history of diverticulitis status post sigmoidectomy seen in the
office for rectal bleeding that started last night.� On rectal exam, maroon stool noted.� She also has other chronic GI issues as detailed below.
- Rectal bleeding
Likely related to diverticular bleed versus other, less likely hemorrhoids as she has maroon stool
No esophageal varices noted on EGD in 2023
She was seen in the office initially and now sending patient to the emergency room for rectal bleeding and also dizziness and lightheadedness.�
She will need to get CBC, CMP and colonoscopy to evaluate this rectal bleeding.
- Cirrhosis of the liver with compensation
MELD 3.0-8 .� Compensated cirrhosis. AFP normal range.� Upper endoscopy in 2023 without varices.
-Fibroscan and MR Elastography shows cirrhosis
-AFP (08/2024) 1
Transaminases are elevated with previous workup being negative
- Was supposed to follow-up with Dr. Sparks but has not done that.
I will see her back in the office in 6 weeks after her hospital visit and we will address these issues.
- Chronic diarrhea on colestipol and pancreatic enzyme supplements
-
-
Thank you for consultation and allowing me to participate in the patient's care. Please call the action installer GI physician during the after hours with any questions or concerns.
[2025-10-21 13:23] LABS: ALT (SGPT) 22 U/L (0-35); AST (SGOT) 28 U/L (14-36); Albumin 4.5 g/dl (3.5-5.0); Alkaline Phosphatase 45 U/L (38-126); Blood Urea Nitrogen 44 mg/dl (7-17); Calcium 9.8 mg/dl (8.4-10.2); Carbon Dioxide 16 mmol/L (22-30); Chloride 104 mmol/L (98-107); Glucose 73 mg/dl (70-99); Sodium 133 mmol/L (135-145); Total Protein 7.1 g/dl (6.3-8.2); eGFR 35.67
[2025-10-21 13:27] LABS: INR 1.07; PT 14.0 Sec (11.4-14.6)
[2025-10-21 13:28] LABS: Potassium 5.8 mmol/L (3.5-5.1)
[2025-10-21] MEDS: PROTONIX IV 40 MG IV ×2 (17:03→22:20)
[2025-10-21 17:07] LABS: Hematocrit 29.3 % (37.0-47.0); Hemoglobin 9.5 g/dL (12.0-16.0); Mean Corp Hgb Conc. 32.4 g/dL (33.0-37.0); Mean Corpuscular Volume 95.8 fL (81.0-99.0); Nucleated Red Blood Cells % 0 %; Platelet Count 243 10^3/uL (130-400); Red Cell Dist. Width 12.7 % (11.5-14.5)
[2025-10-21] MEDS: TYLENOL 650 MG PO ×2 (17:09→23:58)
--- NOTE | 2025-10-21 18:13 | ED.GENMED ---
History of Present Illness
General
Chief Complaint: Rectal Bleeding
Source: patient
Exam Limitations: none
Time Seen by Provider: 10/21/25 16:42
Nursing documentation reviewed up to this point in time: agreed with
History of Present Illness
History of Present Illness:
Patient presents to ED after multiple episodes of dark stool with passage of clots since yesterday afternoon. Patient had similar episode 2 years ago and was treated for ulcer. Patient was evaluated by her GI physician, , this afternoon
where her exam in the office revealed bloody stool. Patient was subsequently referred to ED for an evaluation and admission for further workup. Patient denies dizziness or weakness. Denies trauma. Denies abdominal pain. Denies nausea or
vomiting. Patient does not take any blood thinning medications.
Past History
Past History
ED Past Medical History: Arrthythmia (Paroxysmal atrial fibrillation), Cancer (Cervical), HTN, Hypercholesterolemia, NIDDM, Hypothyroidism and Other (diverticulitis, Kidney stone,)
ED Past Surgical History: Appendectomy (The thinks), Bowel resection, Cardiac (Cardiac catheterization March 2017, unremarkable, Ablation for atrial fib), Cholecystectomy, Gynecological (Hysterectomy), Orthopedic (R hip replacement) and Urological
(Bladder suspension, lithotripsy with ureteral stent and stone removal)
Social History
Tobacco: Former smoker (Quit in 1981)
Alcohol: Occasional
Personal:
Living: with family
Employment: Retired
Family History
Family History: CAD
Review of Systems
Review of Systems
All Other Systems: ROS reviewed and negative except as documented in HPI and ROS
Constitutional: Reports no symptoms; Denies fever
Respiratory: Reports no symptoms
Cardiac: Reports no symptoms
ABD/GI: Reports bloody stools and black stools; Denies abdominal pain, vomiting or diarrhea
Musculoskeletal: Reports no symptoms
Skin: Reports no symptoms
Neurological: Reports no symptoms
Phy Exam
Physical Exam
Physical Exam:
Physical Exam
General: no apparent distress, not acutely ill. afebrile
Head: nc/at. eomi
Neck: supple. normal range of motion
Heart: s1/s2 regular rate and rhythm
Lungs: no acute respiratory distress. clear bilaterally
Abdomen: normal bowel sounds. not tender. rectal exam: deferred, as done in office earlier
Neuro: alert and oriented x 3. no focal neurological deficits
Skin: no rash
Psychiatric: well kept. interactive and cooperative
Extremities: no edema. no calf tenderness.
Course
Orders/Labs/Results
Orders:
Orders
10/21/25 12:39
EKG [Electrocardiogram (*1)] Urgent
Reason for Study: Vertigo / Dizzy
EKG- Treatment ONCE
10/21/25 12:52
Type+Screen Urgent
Comprehensive Metabolic Panel Urgent
Ferritin Urgent
Comment: ADD ON
Folate Urgent
Comment: ADD ON
Iron Urgent
Prothrombin Time Urgent
Total Iron Binding Urgent
Vitamin B12 Urgent
Comment: ADD ON
10/21/25 Dinner
Clear Liquid
At Your Request: Full Participation
10/21/25 16:58
Pantoprazole [Protonix IV] 40 mg IV NOW STA
10/21/25 16:59
Complete Blood Count/With Diff Urgent
10/21/25 17:03
Acetaminophen [Tylenol] 650 mg PO NOW STA
10/21/25 18:30
Admit/Transfer Patient As Directed
Co-Sign Provider:
Level of Care: Inpatient admission
Assign to:: Telemetry
Physician / Group: maria ines
Diagnosis: rectal bleeding
Reason for Telemetry: Arrhythmia
Date to Stop Telemetry: 10/24/25
Time to Stop Telemetry: 11:00
Reason for Hospitalization: rectal bleeding
Expected length of stay greater than two midnights?: Yes
ELOS- Estimated Length of Stay in days: 2
I certify the patient meets the requirements for IP care: Yes
Code Status As Directed
Resuscitation Status: Full Code
PRN Pain Medication Management As Directed
May give lesser potent ordered pain med per pt: Yes
preference::
Protocol:: Medication orders for pain may be administered in a
manner that supports deferring to patient preference
when the pt is:
- Requesting an ordered lesser potent pain medication.
Least to most potent pain medications are defined
as: acetaminophen < NSAID < tramadol < opioids
(morphine, oxycodone, hydromorphone).
- Requesting a lesser dose of the same medication IF
ORDERED.
- Requesting a less intrusive route of administration
if both routes are prescribed by the provider (PO <
IV).
10/21/25 21:32
Dextrose 50%-Water [Dextrose 50% Syringe] 12.5 grams IV [id number] PRN
Glucagon [GlucaGen] 1 mg IM PRN PRN
10/21/25 21:32
Add On- LAB Routine
Tests Added?: iron, b12, folate, ferritin, tibc
GASTROINTESTINAL CONSULT Routine
Consulting Provider: Annita Pizano
Was physician already notified: Yes
Activity As Directed
Activity Level: As Tolerated
Bedside Glucose Monitoring As Directed
Frequency: AC&HS
Additional Instructions:: Change to q6h if pt on TPN, tube feeding or not eating
Pneumatic Compression Sleeves As Directed
Type: Knee high
Vital Signs As Directed
Frequency: Per unit guidelines
DX Deep Vein Thrombosis Video Routine
10/21/25 22:00
Pantoprazole [Protonix IV] 40 mg IV BID
Pravastatin Sodium [Pravachol] 10 mg PO HS
10/22/25 Breakfast
NPO
Allow oral meds: Yes
Allow clear liquids: Sips of Clears
Complete Blood Count/With Diff IN AM
Comprehensive Metabolic Panel IN AM
Glycohemoglobin (HgbA1c) IN AM
Levothyroxine [Synthroid] 100 mcg PO DAILY@0600
10/22/25 07:30
Insulin Aspart Corrective Low [Novolog Flexpen-Low Resistance] See Protocol SC AC
10/22/25 08:00
Cholecalciferol (Vitamin D3) [VITAMIN D3 (cholecalciferol)] 25 mcg PO DAILY
Cyanocobalamin [Vitamin B-12] 1,000 mcg PO DAILY
Escitalopram Oxalate [Lexapro] 20 mg PO DAILY
Lactobac/Bifidobac [Visbiome] 1 cap PO DAILY
Metoprolol Xl [Toprol Xl] 50 mg PO DAILY
Multivitamin [Theragran] 1 tablet PO DAILY
Pancrelipase [Zenpep Delayed Release Capsule] 4 capsule PO DAILY
biotin 1 mg PO DAILY
colestipol 1 grams PO DAILY
milk thistle 150 mg PO DAILY
10/24/25 11:00
DC Protocol for Telemetry ONCE
Abnormal Lab Results
10/21/25 10/21/25
12:52 16:59
RBC 3.06 L 10^6/uL
(4.20-5.40)
Hgb 9.5 L g/dL
(12.0-16.0)
Hct 29.3 L %
(37.0-47.0)
MCHC 32.4 L g/dL
(33.0-37.0)
Sodium 133 L mmol/L
(135-145)
Potassium 5.8 H mmol/L
(3.5-5.1)
Carbon Dioxide 16 L mmol/L
(22-30)
BUN 44 H mg/dl
(7-17)
Creatinine 1.5 H mg/dL
(0.6-1.0)
10/21/25 16:59
10/21/25 12:52
Vital Signs
Initial and Last Documented VS:
Initial Vital Signs
Temp Pulse Resp BP Pulse Ox
98.0 F 67 17 124/84 98
10/21/25 12:33 10/21/25 12:33 10/21/25 12:33 10/21/25 12:33 10/21/25 12:33
Last Documented Vital Signs
Temp Pulse Resp BP Pulse Ox
97.7 F 70 21 115/60 92
10/21/25 21:51 10/21/25 22:36 10/21/25 22:36 10/21/25 22:00 10/21/25 22:15
MDM/Problems Addressed
MDM/Problems Addressed:
H&H noted. Pt with one additional episode of bloody BM in ED, but otherwise hemodynamically stable. With further episodes, will consider obtaining CT angiogram abdomen pelvis to evaluate for potential active hemorrhage.
Blood transfusion consent on the chart.
*Pulse Oximetry
SaO2: 94
Oxygen Mode of Delivery: Room air
Patient hypoxic: no
*Critical Care Note
Total Time (30-74mins, 75-104mins- exclusive of procedures): Not Applicable
ED Attending Note
-
Portions of this chart may have been created with voice recognition software.� Occasional wrong word or��sound alike� substitutions may have occurred due to the inherent limitations of voice recognition software.
Discharge Plan
Departure
Patient Disposition: Admit
Date of Disposition: 10/21/25
Time of Disposition: 18:22
Admit to: Telemetry
Presentation/result/management discussed w/ accepting MD/DO: Hospitalist
Discharge Problem:
GI (gastrointestinal bleed)
Interventions
Interventions:
*General Assessment Last Done: 10/21/25 12:36
*Neglect/Abuse Screening Last Done: 10/21/25 12:36
*ED COVID-19 Vaccine History Last Done: 10/21/25 12:36
*ED Influenza Vaccine History Last Done: 10/21/25 12:36
[facility] Fall Risk Assessment Tool Last Done: 10/21/25 19:04
*Risk Screen - Suicide (C-SSRS) Last Done: 10/21/25 12:36
[facility]lfutz-Teggjhjmlv Assessment Last Done: 10/21/25 17:41
ED- Cardiac Assessment Last Done: 10/21/25 17:41
ED- Pulmonary Assessment Last Done: 10/21/25 17:41
--- NOTE | 2025-10-21 18:36 | HPS.HSE ---
Family Physician
-
Family Physician: Namrata Mccray MD
Chief Complaint
-
rectal bleeding
History of Present Illness
75-year-old female past medical history of diabetes, cirrhosis with portal hypertension, hypertension, LVH, hypothyroidism, hyperlipidemia, chronic iron deficiency anemia, paroxysmal atrial fibrillation status post cryoablation 2017, GERD/duodenal
ulcer with history of GI bleeding, chronic diarrhea, former nicotine use, CVA, migraines, fibromyalgia, osteoarthritis, degenerative disease, lumbar stenosis, obesity, restless leg syndrome, cervical cancer status post hysterectomy, nephrolithiasis
with history of renal stent, presenting with multiple maroon-colored bloody bowel movements over the past day that are loose. This is also associated with abdominal pain across the lower belly. Patient has also been dizzy but no chest pain or
shortness of breath. No syncope. No fevers or chills. She has not recently consumed any outside food.
Denies smoking or alcohol use.
Medical History
Past Medical History
Past Medical History: Reports Other (diabetes, cirrhosis with portal hypertension, hypertension, LVH, hypothyroidism, hyperlipidemia, chronic iron deficiency anemia, paroxysmal atrial fibrillation status post cryoablation 2017, GERD/duodenal ulcer
with history of GI bleeding, chronic diarrhea, former nicotine use, CVA, migraines, fibro)
Past Surgical History: Reports Other ( Orthopedic (R hip replacement) and Urological (Bladder suspension, lithotripsy with ureteral stent and stone removal))
Social History
Tobacco: Non-smoker
Alcohol: None
Drug: None
Family History
Family History: Not pertinent
Allergies / Home Medications
Allergies reflects when Allergies were last updated in [facility].
Home Medications with original date entered in [facility]
Allergy/Medication List:
Allergies
Allergy/AdvReac Type Severity Reaction Status Date / Time
latex (Latex) Allergy breathing Verified 10/21/25 12:36
problems,
Rash
Hives,swelling
Sulfa (Sulfonamide Allergy short of Verified 10/21/25 12:36
Antibiotics) breath
sulfisoxazole Allergy SHORTNESS Verified 10/21/25 12:36
OF BREATH
FROM SULFA
ABX
carvedilol (From Coreg) AdvReac Nausea Verified 10/21/25 12:36
cephalexin (From Keflex) AdvReac Vomiting Verified 10/21/25 12:36
ciprofloxacin (From Cipro) AdvReac Nausea / Verified 10/21/25 12:36
Vomiting
codeine AdvReac severe Verified 10/21/25 12:36
vomiting
hydrocodone AdvReac Nausea / Verified 10/21/25 12:36
Vomiting
levofloxacin (From Levaquin) AdvReac Tendonitis, Verified 10/21/25 12:36
Myalgias
morphine AdvReac Patient Verified 10/21/25 12:36
feels that
she can
handle
morphine
niacin AdvReac red Verified 10/21/25 12:36
rash;skin
gets hot
NSAIDS (Non-Steroidal AdvReac GI Verified 10/21/25 12:36
Anti-Inflamma bleeding -
needed
transfusions
oxycodone HCl (From Percocet) AdvReac Vomiting Verified 10/21/25 12:36
tramadol HCl (From Ultram) AdvReac Nausea / Verified 10/21/25 12:36
Vomiting
Home Medications
Lactobac no.2-Bifidobac no.1-S. thermo 112.5 billion cell capsule (Visbiome) 1 cap PO DAILY 10/21/25
Pancrelipase 4 cap PO DAILY 10/21/25
amlodipine 5 mg tablet (Norvasc) 5 mg PO DAILY 10/21/25
aspirin 81 mg tablet 81 mg PO DAILY 10/21/25
biotin 1 mg capsule 1 mg PO DAILY 10/21/25
cholecalciferol (vitamin D3) 25 mcg (1,000 unit) tablet (Vitamin D3) 25 mcg PO DAILY 10/21/25
colestipol 1 gram tablet 1 g PO DAILY 10/21/25
cyanocobalamin (vitamin B-12) 1,000 mcg tablet 1,000 mcg PO DAILY 10/21/25
dulaglutide 1.5 mg/0.5 mL subcutaneous pen injector (Trulicity) 1.5 mg SC SA 10/21/25
escitalopram oxalate 20 mg tablet (Lexapro) 20 mg PO DAILY 10/21/25
glimepiride 4 mg tablet 4 mg PO BID 10/21/25
irbesartan 75 mg tablet 37.5 mg PO DAILY 10/21/25
levothyroxine 100 mcg tablet 100 mcg PO DAILY 10/21/25
metformin 1,000 mg tablet 1,000 mg PO BID 10/21/25
metoprolol succinate 50 mg tablet,extended release 24 hr (Toprol XL) 50 mg PO DAILY 10/21/25
milk thistle 150 mg capsule 150 mg PO DAILY 10/21/25
pravastatin 10 mg tablet 10 mg PO HS 10/21/25
therapeutic multivitamin 1 tab PO DAILY 10/21/25
Review of Systems
-
History Source: Patient
A 12 point ROS was completed and negative except as noted: Yes
Constitutional: Reports No Symptoms
EENT: Reports No Symptoms
Respiratory: Reports No Symptoms
Cardiac: Reports No Symptoms
Abdomen/GI: Reports See HPI
: Reports No Symptoms
Musculoskeletal: Reports No Symptoms
Skin: Reports No Symptoms
Neurological: Reports No Symptoms
Endocrine: Reports No Symptoms
Hematologic/Lymphatic: Reports No Symptoms
Psych: Reports No Symptoms
Physical Exam
Vital Signs
Vital Signs
Temp Pulse Resp BP Pulse Ox
98.0 F 64 19 112/50 94
10/21/25 12:33 10/21/25 18:00 10/21/25 18:00 10/21/25 18:00 10/21/25 18:14
Physical Exam
General: Well Developed, Well Nourished and No Apparent Distress
HEENT: NormoCephalic, Moist mucous membranes and Atraumatic
Respiratory: Clear
Cardiac: S1/S2 and Regular Rhythm; No Murmur or Rub
GI: Soft, Non Tender, Non Distended and Normal Bowel Sounds; No Organomegaly
Rectal: Deferred by Provider
Musculoskeletal: No Clubbing, No Cyanosis and No Edema
Skin: No Rash
Neuro: Nonfocal/grossly intact
Laboratory Results
-
10/21/25 16:59
10/21/25 12:52
Laboratory Results
PT 14.0 Sec (11.4-14.6) 10/21/25 12:52
INR 1.07 10/21/25 12:52
Total Bilirubin 0.5 mg/dl (0.2-1.3) 10/21/25 12:52
AST 28 U/L (14-36) 10/21/25 12:52
ALT 22 U/L (0-35) 10/21/25 12:52
Alkaline Phosphatase 45 U/L (38-126) 10/21/25 12:52
Data Reviewed
-
Lab Data: Labs Reviewed by me
Old Records: Reviewed
Impression/Plan
-
IMPRESSION:
PLAN:
# Rectal bleeding possibly colitis versus diverticular versus upper GI bleeding
-Maroon-colored loose stool in the toilet
-Hemoglobin 9.5 from 11.1 previous
-Protonix 40 twice daily
-Blood consent signed
-Type and screen
-Check iron studies and B12
-Clear liquid diet, NPO past midnight
-Consider CTA abdomen pelvis to evaluate further active bleeding although does have CKD
- GI consulted
# Hyperkalemia possibly secondary to irbesartan
# Chronic kidney disease
-Potassium 5.8
- Creatinine 1.5 from 1 previously
- Hold irbesartan
History of GERD/duodenal ulcer
History of cirrhosis with portal hypertension
Essential hypertension
- Hold amlodipine, irbesartan
LVH
Hypothyroidism
- Continue levothyroxine
Hyperlipidemia
Chronic iron deficiency anemia
Paroxysmal atrial fibrillation status post cryoablation 2016
- Continue metoprolol
Chronic diarrhea
- Continue colestipol
Former nicotine use
History of CVA
- Hold aspirin, continue statin
Type 2 diabetes
- Hold glimepiride, metformin
- Insulin sliding scale
History of migraines
Fibromyalgia
Osteoarthritis
Degenerative disc disease
Lumbar stenosis
Obesity
Restless leg syndrome
Cervical cancer status post hysterectomy
Nephrolithiasis with history of renal stent
Anxiety/depression
- Continue Lexapro
History of pancreatic insufficiency
- Continue pancrelipase
Full code
DVT prophylaxis�SCDs
Clear liquid diet
[2025-10-21 22:03] LABS: Iron 105 ug/dl (37-170)
[2025-10-21 22:13] LABS: Total Iron Binding Capacity 408 ug/dl (265-497)
[2025-10-21] MEDS: PRAVACHOL 10 MG PO (22:20)
[2025-10-21] MEDS: NSS (PRESERVATIVE FREE) 10 ML IV (22:20)
[2025-10-21 23:50] LABS: Ferritin 21.4 ng/ml (11.1-264.0)
[2025-10-22] VITALS (24 sets, daily range): BP systolic 106–144; BP diastolic 53–77; BMI 29.3
[2025-10-22 00:21] LABS: Folate 8.7 ng/ml (2.76-20); Vitamin B12 319 pg/ml (239-931)
[2025-10-22 07:01] LABS: ALT (SGPT) 18 U/L (0-35); AST (SGOT) 25 U/L (14-36); Albumin 3.6 g/dl (3.5-5.0); Alkaline Phosphatase 44 U/L (38-126); Blood Urea Nitrogen 45 mg/dl (7-17); Calcium 9.4 mg/dl (8.4-10.2); Carbon Dioxide 22 mmol/L (22-30); Chloride 104 mmol/L (98-107); Glucose 42 mg/dl (70-99); Potassium 4.8 mmol/L (3.5-5.1); Sodium 134 mmol/L (135-145); Total Protein 6.0 g/dl (6.3-8.2); eGFR 30.70
--- NOTE | 2025-10-22 07:41 | PTCARENOTE ---
Glucose returned 42 on morning labs. Bedside accucheck obtained and resulted 95.
[2025-10-22] MEDS: SYNTHROID 100 MCG PO (07:54)
[2025-10-22] MEDS: VITAMIN B-12 1000 MCG PO (07:54)
[2025-10-22] MEDS: LEXAPRO 20 MG PO (07:54)
[2025-10-22] MEDS: TOPROL XL 50 MG PO (07:54)
[2025-10-22] MEDS: VITAMIN D3 (cholecalciferol) 25 MCG PO (07:54)
[2025-10-22] MEDS: VISBIOME 1 CAP PO (07:54)
[2025-10-22] MEDS: NSS (PRESERVATIVE FREE) 10 ML IV ×2 (07:57→19:58)
[2025-10-22] MEDS: PROTONIX IV 40 MG IV ×2 (07:57→20:04)
[2025-10-22] MEDS: DEXTROSE 50% SYRINGE 12.5 GRAMS IV (08:00)
[2025-10-22 08:28] LABS: Glycohemoglobin (HgbA1c) 5.4 % (4.0-5.9)
[2025-10-22 08:43] LABS: Hematocrit 25.7 % (37.0-47.0); Hemoglobin 8.6 g/dL (12.0-16.0); Mean Corp Hgb Conc. 33.5 g/dL (33.0-37.0); Mean Corpuscular Volume 96.6 fL (81.0-99.0); Nucleated Red Blood Cells % 0 %; Platelet Count 180 10^3/uL (130-400); Red Cell Dist. Width 12.7 % (11.5-14.5)
[2025-10-22] MEDS: THERAGRAN 1 TABLET PO (09:54)
[2025-10-22] MEDS: D5/0.45%NACL 1000 IV (09:56)
--- NOTE | 2025-10-22 10:02 | W.PN.GI.CBS2 ---
Addendum entered and electronically signed by Isaiah Cheung MD 10/22/25 12:01:
I saw and examined the patient.
The SALVAGE ENGINEER or PA's note was reviewed and I agree with the note.
I saw and examined the patient.
The SALVAGE ENGINEER or PA's note was reviewed and I agree with the note.
Comment: Passed some dark BMs overnight. Reports dizziness
ABD soft NT
REC:
Hgb down a bit to 8.6
Given the dark stools, will check EGD today to r/o ulcer, varices. She had negative EGD last year
If neg, proceed with colonoscopy tomorrow.
Start Octreotide gtt and abx for GI bleed in cirrhotic
Original Note:
Today's Communication / Plan
-
Etiology of bleeding related to upper vs lower GI bleeding - diverticular, AVM, hemorrhoids vs with hx cirrhosis cannot exclude variceal bleeding-- though recent stable EGD and stable Albumin, platelets etc
several stools overnight with red, black and burgundy stool along with dizziness
will plan for EGD today if neg then colonoscopy in am
if larger volume stools consider CTA if creat allow
cont to trend hbg, transfuse as needed
cont PPI BID
-will add octreotide and abx
glucose low this am s/p dextrose this am
reviewed with pharmacy for antibiotics with multiple allergies but has tolerated Ceftiaxone in 2023 for 5 days ok to proceed -- reviewed with patient
MELD 3.0-8 on admission
Transaminases were elevated with previous workup being negative
- Was supposed to follow-up with Dr. Sparks but has not done that to follow up with Dr. Pizano 6 week for follow up liver imaging etc
Chronic diarrhea on colestipol and pancreatic enzyme supplements
Assessment / Plan
-
75-year-old female with multiple medical problems including compensated liver disease with cirrhosis, hypertension, high cholesterol, diabetes, history of nonbleeding duodenal ulcers, history of diverticulitis status post sigmoidectomy seen in the
office for rectal bleeding that started last night.� On rectal exam, maroon stool noted.� She also has other chronic GI issues as detailed below.
- Rectal bleeding with red and black stools
-anemia
-hx IBARRA cirrhosis with compensated labs -Fibroscan and MR Elastography shows cirrhosis -AFP (08/2024) 1
-chronic diarrhea
-BAO on admission
-hypoglycemia
PLAN:
Etiology of bleeding related to upper vs lower GI bleeding - diverticular, AVM, hemorrhoids vs with hx cirrhosis cannot exclude variceal bleeding-- though recent stable EGD and stable Albumin, platelets etc
several stools overnight with red, black and burgundy stool along with dizziness
will plan for EGD today if neg then colonoscopy in am
if larger volume stools consider CTA if creat allow
cont to trend hbg, transfuse as needed
cont PPI BID
-will add octreotide and abx
glucose low this am s/p dextrose this am
reviewed with pharmacy for antibiotics with multiple allergies but has tolerated Ceftiaxone in 2023 for 5 days ok to proceed -- reviewed with patient
MELD 3.0-8 on admission
Transaminases were elevated with previous workup being negative
- Was supposed to follow-up with Dr. Sparks but has not done that to follow up with Dr. Pizano 6 week for follow up liver imaging etc
Chronic diarrhea on colestipol and pancreatic enzyme supplements
Subjective
Subjective
Date of Service: October 22, 2025
10/21 bloody stools with black and red stools, NPO admits to some dizziness with bleeding
Objective
Data Reviewed
Laboratory Data:
Laboratory Results
10/22/25 05:41
10/22/25 05:41
Laboratory Results
PT 14.0 Sec (11.4-14.6) 10/21/25 12:52
INR 1.07 10/21/25 12:52
Total Bilirubin 0.3 mg/dl (0.2-1.3) 10/22/25 05:41
AST 25 U/L (14-36) 10/22/25 05:41
ALT 18 U/L (0-35) 10/22/25 05:41
Alkaline Phosphatase 44 U/L (38-126) 10/22/25 05:41
Vital Signs and I&O:
Vital Signs
Temp Pulse Resp BP Pulse Ox
97.8 F 69 18 122/71 95
10/22/25 07:19 10/22/25 06:30 10/22/25 06:30 10/22/25 06:00 10/22/25 05:30
Physical Exam
Physical Exam
HEENT: Anicteric and Moist mucous membranes
Cardiology: Normal Sinus Rhythm
Pulmonary: Clear
GI: Soft, Distended (mild ) and Non Tender
Extremities: No Edema
Neuro: Non Focal
[2025-10-22] MEDS: TYLENOL 650 MG PO ×2 (10:11→17:07)
[2025-10-22] MEDS: SANDOSTATIN 50 MCG IV (11:04)
[2025-10-22] MEDS: SANDOSTATIN 250 MCG IV (11:09)
--- NOTE | 2025-10-22 11:37 | PTCARENOTE ---
Addendum entered by Bryan Ruiz RN 10/22/25 12:39:
All accuchecks have transferred to chart
Original Note:
Glucose 43 on AM labs. Bedside accucheck resulted 60. Dextrose 12.5 grams IV administered. Follow up blood sugar resulted 105. Dr. Warren notified. New order for D5 1/2 NSS infusing @ 50ml/hr. 2 hour follow up accucheck resulkted 120. And 11:30
Accucheck resulted 127. Accucheck data not successfully transferred to chart.
[2025-10-22 12:26] LABS: Glucose - Point of Care 112 mg/dl (70-99)
[2025-10-22 12:26] LABS: Glucose - Point of Care 120 mg/dl (70-99)
[2025-10-22 12:26] LABS: Glucose - Point of Care 60 mg/dl (70-99)
[2025-10-22 12:26] LABS: Glucose - Point of Care 105 mg/dl (70-99)
[2025-10-22] MEDS: ROCEPHIN 1000 MG IV (12:36)
[2025-10-22] MEDS: STERILE WATER FOR INJECTION 10 ML IV (12:36)
[2025-10-22 12:48] LABS: Hematocrit 27.4 % (37.0-47.0); Hemoglobin 8.7 g/dL (12.0-16.0)
--- NOTE | 2025-10-22 13:21 | W.PN.UPDATE ---
Update Note
Progress Note Update
EGD done
Normal.
No varices
REC:
D/C Octreotide gtt
Prep for colonoscopy tomorrow
[2025-10-22 13:45] LABS: Glucose - Point of Care 144 mg/dl (70-99)
--- NOTE | 2025-10-22 14:29 | W.PN.HOSP.TC ---
Today's Communication/Plan
-
Assessment / Plan
Assessment / Plan
General: No Apparent Distress, Comfortable and Conversant
HEENT: NormoCephalic, Moist mucous membranes, Atraumatic
Respiratory: Clear and Non Labored Respirations
Cardiac: S1/S2 and Regular Rhythm; No Rub or Gallop
GI: Soft, lower abdominal TTP
Musculoskeletal: No Edema, no deformity
Skin: Warm and dry
: NO Pillai
Neuro: Awake, Alert, Nonfocal/grossly intact
Psych: Calm and Intact Judgment/Insight
Ms. Barboza is a 75-year-old female with medical history of cirrhosis with portal hypertension (compensated, no varices), [id number] diabetes mellitus, hypertension, hypothyroidism (secondary to Jean Marie's), paroxysmal A-fib (status
post ablation 2016), duodenal ulcer with GI bleed, CVA, cervical cancer (hysterectomy), nephrolithiasis (recent ureteral stent), and chronic MIKE who presented with abdominal pain and maroon-colored stools. She has a history of diverticular bleed in
2018 and has had a resection for diverticulitis. One day prior to arrival she suddenly had the urge to defecate at which time she had a bowel movement with dark red blood with a little stool. She remained hemodynamically stable in the ED. She was
admitted and kept n.p.o. after midnight for endoscopy.
Lower GI bleeding:
- Etiology currently unclear but possibly due to bleeding hemorrhoid, diverticula, AVM, or varices
- Upper endoscopy today 10/22 showed no evidence of esophageal or gastric varices, octreotide drip discontinued
- Planning colon prep for colonoscopy tomorrow 10/23
- Continue to monitor hemoglobin closely, transfuse if needed
- IV fluids
- IV PPI
- Appreciate GI guidance
Acute on chronic anemia:
- Iron deficiency anemia chronically
- Now with superimposed blood loss due to GI bleeding
- Monitor hemoglobin closely and transfuse as needed
- Baseline hemoglobin likely around 11
NIDDM:
- Uses metformin, glimepiride, and Trulicity at home
- Sliding scale insulin while n.p.o.
- Was hypoglycemic and symptomatic this morning so started on IV fluids with dextrose at low rate
- Continue Accu-Cheks
Hepatic cirrhosis with portal hypertension:
- Compensated
BAO and hyperkalemia:
- Initial serum potassium 5.8 creatinine 1.5
- Held home irbesartan
- Giving IV fluids
- Serum potassium resulted within normal limits
- Creatinine slightly worse today at 1.7, will monitor
Hypertension:
- Holding home irbesartan due to BAO with hyperkalemia
- Also holding home amlodipine as blood pressure is currently well-controlled without it, will restart as needed
Hypothyroidism:
- Secondary to Jean Marie's thyroiditis
- Continue home levothyroxine 100 mcg daily
DVT prophylaxis: SCDs
CODE STATUS: Full code
Anticipated Discharge: > 48 hours
Subjective/Interval History
-
Date of Service: October 22, 2025
Patient was seen and examined at bedside this morning. Continues to have diffuse lower abdominal pain. Remains hemodynamically stable. Hemoglobin trending down with ongoing rectal bleeding. N.p.o. for endoscopy.
Objective Data
-
Labs:
Laboratory Results
10/22/25 10/22/25 10/22/25
05:41 12:36 21:00
WBC 7.2
Hgb 8.6 L 8.7 L Pending
Hct 25.7 L 27.4 L Pending
Plt Count 180 D
Sodium 134 L
Potassium 4.8
Chloride 104
Carbon Dioxide 22
BUN 45 H
Creatinine 1.7 H
Glucose 42 L*
Calcium 9.4
Total Bilirubin 0.3
AST 25
ALT 18
Alkaline Phosphatase 44
Vital Signs:
Vital Signs
Temp Pulse Resp BP Pulse Ox
98.2 F 63 14 117/66 95
10/22/25 14:15 10/22/25 14:15 10/22/25 14:15 10/22/25 14:00 10/22/25 14:15
Review of Systems
-
History Source: Patient
All other systems: Reviewed and negative
Abdomen/GI: Reports Abdominal Pain and Bloody Stools
Physical Exam
-
General: No Apparent Distress
[2025-10-22] MEDS: NULYTELY SOLUTION 4 LITERS PO (16:30)
[2025-10-22] MEDS: ZENPEP DELAYED RELEASE CAPSULE 4 CAPSULE PO (17:03)
[2025-10-22 17:06] LABS: Glucose - Point of Care 159 mg/dl (70-99)
[2025-10-22] MEDS: PRAVACHOL 10 MG PO (19:58)
[2025-10-22 21:19] LABS: Glucose - Point of Care 302 mg/dl (70-99)
[2025-10-22 21:33] LABS: Hematocrit 24.6 % (37.0-47.0); Hemoglobin 8.4 g/dL (12.0-16.0)
[2025-10-22] MEDS: NOVOLOG FLEXPEN 3 UNITS SC (22:04)
[2025-10-23] VITALS (11 sets, daily range): BP systolic 17–155; BP diastolic 60–82; BMI 29.3
[2025-10-23 00:11] LABS: Glucose - Point of Care 161 mg/dl (70-99)
[2025-10-23] MEDS: TYLENOL 650 MG PO ×2 (00:27→13:06)
[2025-10-23 05:58] LABS: Glucose - Point of Care 141 mg/dl (70-99)
[2025-10-23] MEDS: NOVOLOG FLEXPEN-LOW RESISTANCE SC ×2 (06:03→12:48)
[2025-10-23] MEDS: SYNTHROID 100 MCG PO (06:03)
[2025-10-23] MEDS: NSS (PRESERVATIVE FREE) 10 ML IV ×2 (08:28→21:20)
[2025-10-23] MEDS: PROTONIX IV 40 MG IV ×2 (08:28→21:20)
[2025-10-23 08:31] LABS: Hematocrit 23.9 % (37.0-47.0); Hemoglobin 7.8 g/dL (12.0-16.0); Mean Corp Hgb Conc. 32.6 g/dL (33.0-37.0); Mean Corpuscular Volume 96.4 fL (81.0-99.0); Platelet Count 161 10^3/uL (130-400); Red Cell Dist. Width 12.4 % (11.5-14.5)
[2025-10-23 08:33] LABS: INR 1.23; PT 15.3 Sec (11.4-14.6)
[2025-10-23 09:21] LABS: ALT (SGPT) 20 U/L (0-35); AST (SGOT) 29 U/L (14-36); Albumin 3.4 g/dl (3.5-5.0); Alkaline Phosphatase 41 U/L (38-126); Blood Urea Nitrogen 26 mg/dl (7-17); Calcium 8.3 mg/dl (8.4-10.2); Carbon Dioxide 20 mmol/L (22-30); Chloride 106 mmol/L (98-107); Estimated Creatinine Clearance 29 ml/min; Glucose 148 mg/dl (70-99); Potassium 4.5 mmol/L (3.5-5.1); Sodium 133 mmol/L (135-145); Total Protein 5.6 g/dl (6.3-8.2); eGFR 38.75
--- NOTE | 2025-10-23 10:10 | PN.CDI ---
CDI
- -
CDI:
Physician Documentation Request
Admit Date: 10/21/25 19:44
Dear Doctor Betsey,
Please review the following and provide your response in the progress notes.
Clinical Indicators:
Pt admitted with GI Bleed /Acute Bloodloss Anemia/BAO
Sodium levels are as below/Pt did get IVFs
Laboratory Tests
10/21/25 10/22/25 10/23/25
12:52 05:41 07:43
Sodium 133 L 134 L 133 L
Based on the above, could you clarify in the progress notes, the appropriate diagnosis, if significant, that supports the above abnormalities and additional evaluation, monitoring and/or treatment rendered:
Hyponatremia
Abnormal lab value
Other ( please specify)
Use of terms such as suspected, likely, concern for, or probable (associated with a specific diagnosis that is being evaluated, monitored, or treated as if it exists) are acceptable and can be coded in the inpatient setting, when documented at the
time of discharge.
Thank you,
Michelle Wray RN
CDI Specialist
[place] [facility]
Please use your independent medical judgment in providing your response.
--- NOTE | 2025-10-23 11:35 | CM ---
Patient off floor to GI, spoke w/ spouse. Initial assessment completed. Patient presenting with multiple maroon-colored bloody bowel movements.
Patient resides w/ spouse in a 2[facility], no steps. Patient is independent in all areas. No DME. No SNF/HC hx.
Address, points of contact and insurance verified
PCP: Namrata Mccray
Pharmacy: [facility]
Plan: Home, no needs anticipated
--- NOTE | 2025-10-23 12:00 | W.PN.UPDATE ---
Update Note
Progress Note Update
Colonoscopy done
10mm hepatic flexure polyp removed w hot snare
Diverticulosis sigmoid, descending, cecum, ascending
Small clots in rectum, no active bleeding
REC:
Await path
Resume low res diet
[2025-10-23 12:09] LABS: Glucose - Point of Care 131 mg/dl (70-99)
[2025-10-23] MEDS: VITAMIN B-12 1000 MCG PO (12:48)
[2025-10-23] MEDS: VISBIOME 1 CAP PO (12:49)
[2025-10-23] MEDS: ZENPEP DELAYED RELEASE CAPSULE 4 CAPSULE PO (12:49)
[2025-10-23] MEDS: THERAGRAN 1 TABLET PO (12:51)
[2025-10-23] MEDS: LEXAPRO 20 MG PO (12:51)
[2025-10-23] MEDS: TOPROL XL 50 MG PO (12:51)
[2025-10-23] MEDS: VITAMIN D3 (cholecalciferol) 25 MCG PO (12:51)
[2025-10-23] MEDS: STERILE WATER FOR INJECTION 10 ML IV (12:57)
[2025-10-23] MEDS: ROCEPHIN 1000 MG IV (12:57)
--- NOTE | 2025-10-23 14:05 | W.PN.HOSP.TC ---
Addendum entered and electronically signed by Samuel Leggett DO 10/23/25 15:56:
Additional diagnosis:
Hyponatremia
Original Note:
Today's Communication/Plan
-
Assessment / Plan
Assessment / Plan
General: No Apparent Distress, Comfortable and Conversant
HEENT: NormoCephalic, Moist mucous membranes, Atraumatic
Respiratory: Clear and Non Labored Respirations
Cardiac: S1/S2 and Regular Rhythm; No Rub or Gallop
GI: Soft, lower abdominal TTP
Musculoskeletal: No Edema, no deformity
Skin: Warm and dry
: NO Pillai
Neuro: Awake, Alert, Nonfocal/grossly intact
Psych: Calm and Intact Judgment/Insight
Ms. Barboza is a 75-year-old female with medical history of cirrhosis with portal hypertension (compensated, no varices), gty-rimiorn-ktsrwpksg diabetes mellitus, hypertension, hypothyroidism (secondary to Jean Marie's), paroxysmal A-fib (status
post ablation 2016), duodenal ulcer with GI bleed, CVA, cervical cancer (hysterectomy), nephrolithiasis (recent ureteral stent), and chronic MIKE who presented with abdominal pain and maroon-colored stools. She has a history of diverticular bleed in
2018 and has had a resection for diverticulitis. One day prior to arrival she suddenly had the urge to defecate at which time she had a bowel movement with dark red blood with a little stool. She remained hemodynamically stable in the ED. She was
admitted and kept n.p.o. after midnight for endoscopy.
Lower GI bleeding:
- Etiology currently unclear but possibly due to bleeding hemorrhoid, diverticula, AVM, or varices
- Upper endoscopy 10/22 showed no evidence of esophageal or gastric varices, octreotide drip discontinued
- Colonoscopy today 10/23 showed 10 mm hepatic flexure polyp which was removed with hot snare, also showed small mouth diverticulosis throughout most of her colon and clotted blood in the rectum
- Started on low residue diet
- Transfusing 1 unit PRBCs today, will monitor and transfuse further as needed
- IV PPI
- Appreciate GI guidance
Acute on chronic anemia:
- Iron deficiency anemia chronically
- Now with superimposed blood loss due to GI bleeding
- Hemoglobin 9.5 => 8.7 => 7.8 transfused 1 unit PRBCs
- Monitor hemoglobin closely and transfuse further as needed
- Baseline hemoglobin appears to be around 11
NIDDM:
- Uses metformin, glimepiride, and Trulicity at home
- Sliding scale insulin while n.p.o.
- Was hypoglycemic and symptomatic so started on IV fluids with dextrose at low rate
- Will monitor now that tolerating p.o. diet
- Continue Accu-Cheks
Hepatic cirrhosis with portal hypertension:
- Compensated
BAO and hyperkalemia:
- Initial serum potassium 5.8 creatinine 1.5
- Held home irbesartan
- Gave IV fluids
- Serum potassium resulted within normal limits
- Creatinine slightly improved today at 1.4, will monitor
Hypertension:
- Holding home irbesartan due to BAO with hyperkalemia
- Also holding home amlodipine as blood pressure is currently well-controlled without it, will restart as needed
Hypothyroidism:
- Secondary to Jean Marie's thyroiditis
- Continue home levothyroxine 100 mcg daily
DVT prophylaxis: SCDs
CODE STATUS: Full code
Anticipated Discharge: > 48 hours
Subjective/Interval History
-
Date of Service: October 23, 2025
Patient was seen and examined at bedside this morning. Continues to have blood per rectum and hemoglobin is dropped to 7.8. Colonoscopy today. Will transfuse 1 unit PRBCs.
Objective Data
-
Labs:
Laboratory Results
10/23/25
07:43
WBC 4.0 L
Hgb 7.8 L
Hct 23.9 L
Plt Count 161
PT 15.3 H
INR 1.23
Sodium 133 L
Potassium 4.5
Chloride 106
Carbon Dioxide 20 L
BUN 26 H
Creatinine 1.4 H
Glucose 148 H
Calcium 8.3 L
Total Bilirubin 0.3
AST 29
ALT 20
Alkaline Phosphatase 41
Vital Signs:
Vital Signs
Temp Pulse Resp BP Pulse Ox
98.3 F 65 18 130/72 96
10/23/25 12:41 10/23/25 12:51 10/23/25 12:41 10/23/25 12:51 10/23/25 12:41
I&O
10/22/25 10/23/25 10/24/25
06:59 06:59 06:59
Intake Total 1000 / 1000
Balance 1000 / 1000
Review of Systems
-
History Source: Patient
All other systems: Reviewed and negative
Abdomen/GI: Reports Bloody Stools
Physical Exam
-
General: No Apparent Distress
[2025-10-23 16:55] LABS: Glucose - Point of Care 269 mg/dl (70-99)
[2025-10-23] MEDS: NOVOLOG FLEXPEN-LOW RESISTANCE 3 UNITS SC (17:32)
[2025-10-23] MEDS: PRAVACHOL 10 MG PO (21:20)
[2025-10-23] MEDS: FLUSH (NSS) 1 FLUSH IV (21:21)
[2025-10-23 21:42] LABS: Hematocrit 27.5 % (37.0-47.0); Hemoglobin 9.1 g/dL (12.0-16.0)
[2025-10-23 21:47] LABS: Glucose - Point of Care 89 mg/dl (70-99)
[2025-10-24 03:51] LABS: Hematocrit 28.4 % (37.0-47.0); Hemoglobin 9.3 g/dL (12.0-16.0)
[2025-10-24 03:58] VITALS: BP 142/69
[2025-10-24] MEDS: SYNTHROID 100 MCG PO (05:46)
[2025-10-24 06:00] VITALS: BMI 29.3
--- NOTE | 2025-10-24 06:17 | W.PN.GI.CBS2 ---
Today's Communication / Plan
-
Still with fatigue, but otherwise without any signs to suggest recurrent GI bleeding and stable H/h. Suspect resolved diverticular bleed. Continue antibiotics for total of 5-day course given GIB and history of cirrhosis. Needs close outpatient f/u
with her primary GI after discharge. GI will sign-off, please recontact with any questions/concerns.
Assessment / Plan
-
75-year-old female with multiple medical problems including compensated liver disease with cirrhosis, hypertension, high cholesterol, diabetes, history of nonbleeding duodenal ulcers, history of diverticulitis status post sigmoidectomy seen in the
office for rectal bleeding that started last night.� On rectal exam, maroon stool noted.� She also has other chronic GI issues as detailed below.
- Rectal bleeding with red and black stools
-anemia
-hx IBARRA cirrhosis with compensated labs -Fibroscan and MR Elastography shows cirrhosis -AFP (08/2024) 1
-chronic diarrhea
-BAO on admission
-hypoglycemia
- S/p colonoscopy 10/23/25: 10 mm polyp at the HF s/p removal via HS. Multiple diverticulosis found in sigmoid colon, descending colon, ascending colon and cecum, and blood in rectum felt 2/2 resolving diverticular hemorrhage
- Hgb stable, now 9.5 this AM. Still passing old blood, but secondary to resolving diverticular hemorrhage.
Recommendations:
- Continue low-residue diet as tolerated
- No signs to suggest recurrent GI bleeding
- Continue to trend Hgb with serial CBC, transfuse for goal Hgb > 7.0
- Favor continuing antibiotics for total of 5-days given hx of cirrhosis and GIB
- Still suspect resolved diverticular hemorrhage, however if concern for recurrent large volume hematochezia would obtain CTA while inpatient
- Await pathology results, can be f/u as outpatient
- Needs close outpatient follow-up with her primary GI (Dr. Pizano) in 6-8 weeks along with outpatient f/u with Dr. Sparks
- Strict avoidance of all NSAIDs
- Rest of care as per primary team
Discussed with primary internal medicine team this AM. GI will sign-off, please recontact with any questions or concerns.
Subjective
Subjective
Date of Service: October 24, 2025
- S/p colonoscopy 10/23/25: 10 mm polyp at the HF s/p removal via HS. Multiple diverticulosis found in sigmoid colon, descending colon, ascending colon and cecum, and blood in rectum felt 2/2 resolving diverticular hemorrhage
- Hgb stable, now 9.5 this AM
- Otherwise, no acute events overnight. Started on low-residue diet
Feeling well and resting comfortably although still notes ongoing fatigue. Discussed results of recent colonoscopy this AM. Still passing dark, old blood but denies any further hematochezia or bright red blood per rectum. No other nausea or vomiting.
Objective
Data Reviewed
Laboratory Data:
Laboratory Results
PT 15.3 Sec (11.4-14.6) H 10/23/25 07:43
INR 1.23 10/23/25 07:43
Total Bilirubin 0.3 mg/dl (0.2-1.3) 10/23/25 07:43
AST 29 U/L (14-36) 10/23/25 07:43
ALT 20 U/L (0-35) 10/23/25 07:43
Alkaline Phosphatase 41 U/L (38-126) 10/23/25 07:43
Vital Signs and I&O:
Vital Signs
Temp Pulse Resp BP Pulse Ox
98.0 F 64 18 142/69 96
10/24/25 03:58 10/24/25 03:58 10/24/25 03:58 10/24/25 03:58 10/24/25 03:58
I&O
10/22/25 10/23/25 10/24/25
06:59 06:59 06:59
Intake Total 1000 / 1000 730 / 730
Balance 1000 / 1000 730 / 730
Physical Exam
Physical Exam
HEENT: Anicteric and Moist mucous membranes
Pulmonary: Other (Normal WOB on room air)
GI: Soft, Non Distended and Non Tender
Extremities: No Edema
Neuro: Non Focal and Other (AAOx3, no asterixis)
[2025-10-24 07:30] VITALS: BP 125/65
[2025-10-24 07:40] LABS: Glucose - Point of Care 144 mg/dl (70-99)
[2025-10-24 08:52] LABS: Hematocrit 28.4 % (37.0-47.0); Hemoglobin 9.5 g/dL (12.0-16.0); Mean Corp Hgb Conc. 33.5 g/dL (33.0-37.0); Mean Corpuscular Volume 92.8 fL (81.0-99.0); Nucleated Red Blood Cells % 0 %; Platelet Count 166 10^3/uL (130-400); Red Cell Dist. Width 13.4 % (11.5-14.5)
[2025-10-24 09:18] LABS: Blood Urea Nitrogen 24 mg/dl (7-17); Calcium 8.9 mg/dl (8.4-10.2); Carbon Dioxide 21 mmol/L (22-30); Chloride 106 mmol/L (98-107); Estimated Creatinine Clearance 29 ml/min; Glucose 133 mg/dl (70-99); Potassium 4.3 mmol/L (3.5-5.1); Sodium 134 mmol/L (135-145); eGFR 38.75
[2025-10-24] MEDS: VITAMIN B-12 1000 MCG PO (09:20)
[2025-10-24] MEDS: ZENPEP DELAYED RELEASE CAPSULE 4 CAPSULE PO (09:20)
[2025-10-24] MEDS: VITAMIN D3 (cholecalciferol) 25 MCG PO (09:20)
[2025-10-24] MEDS: LEXAPRO 20 MG PO (09:20)
[2025-10-24] MEDS: NSS (PRESERVATIVE FREE) 10 ML IV ×2 (09:21→21:17)
[2025-10-24] MEDS: VISBIOME 1 CAP PO (09:21)
[2025-10-24] MEDS: TOPROL XL 50 MG PO (09:21)
[2025-10-24] MEDS: THERAGRAN 1 TABLET PO (09:21)
[2025-10-24] MEDS: PROTONIX IV 40 MG IV ×2 (09:22→21:17)
[2025-10-24] MEDS: NOVOLOG FLEXPEN-LOW RESISTANCE SC (09:23)
[2025-10-24] MEDS: TYLENOL 650 MG PO ×2 (09:23→21:22)
[2025-10-24 11:43] LABS: Glucose - Point of Care 155 mg/dl (70-99)
[2025-10-24 11:45] VITALS: BP 128/76
[2025-10-24] MEDS: STERILE WATER FOR INJECTION 10 ML IV (12:45)
[2025-10-24] MEDS: ROCEPHIN 1000 MG IV (12:46)
[2025-10-24] MEDS: NOVOLOG FLEXPEN-LOW RESISTANCE 1 UNITS SC (12:46)
[2025-10-24 15:20] VITALS: BP 133/74
--- NOTE | 2025-10-24 16:17 | W.PN.HOSP.TC ---
Today's Communication/Plan
-
Assessment / Plan
Assessment / Plan
General: No Apparent Distress, Comfortable and Conversant
HEENT: NormoCephalic, Moist mucous membranes, Atraumatic
Respiratory: Clear and Non Labored Respirations
Cardiac: S1/S2 and Regular Rhythm; No Rub or Gallop
GI: Soft, lower abdominal TTP
Musculoskeletal: No Edema, no deformity
Skin: Warm and dry
: NO Pillai
Neuro: Awake, Alert, Nonfocal/grossly intact
Psych: Calm and Intact Judgment/Insight
Ms. 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
post ablation 2016), duodenal ulcer with GI bleed, CVA, cervical cancer (hysterectomy), nephrolithiasis (recent ureteral stent), and chronic MIKE who presented with abdominal pain and maroon-colored stools. She has a history of diverticular bleed in
2017 and has had a resection for diverticulitis. One day prior to arrival she suddenly had the urge to defecate at which time she had a bowel movement with dark red blood with a little stool. She remained hemodynamically stable in the ED. She was
admitted and kept n.p.o. after midnight for endoscopy.
Lower GI bleeding:
- Likely resolved diverticular bleed
- Upper endoscopy 10/22 showed no evidence of esophageal or gastric varices, octreotide drip discontinued
- Colonoscopy 10/23 showed 10 mm hepatic flexure polyp which was removed with hot snare, also showed small mouth diverticulosis throughout most of her colon and clotted blood in the rectum
- Started on low residue diet
- Transfused 1 unit PRBCs 10/23, hemoglobin improved from 7.8 => 9.5
- IV PPI
- Appreciate GI guidance, now signed off
- Will continue antibiotics for total 5-day course
Acute on chronic anemia:
- Iron deficiency anemia chronically
- Now with superimposed blood loss due to GI bleeding, likely diverticular bleed which has now resolved
- Hemoglobin 9.5 => 8.7 => 7.8 transfused 1 unit PRBCs => 9.5
- Monitor hemoglobin closely and transfuse further as needed
- Baseline hemoglobin appears to be around 11
NIDDM:
- Uses metformin, glimepiride, and Trulicity at home
- Sliding scale insulin while n.p.o.
- Was hypoglycemic and symptomatic so started on IV fluids with dextrose at low rate
- Will monitor now that tolerating p.o. diet
- Continue Accu-Cheks
Hepatic cirrhosis with portal hypertension:
- Compensated
BAO and hyperkalemia:
- Initial serum potassium 5.8 creatinine 1.5
- Held home irbesartan
- Gave IV fluids
- Serum potassium now within normal limits
- Creatinine slightly improved today at 1.4 which may be close to her current baseline, will monitor
Hypertension:
- Holding home irbesartan due to BAO with hyperkalemia
- Restarting home amlodipine 5 mg daily tomorrow morning 10/25 as blood pressure is now creeping up
Hypothyroidism:
- Secondary to Jean Marie's thyroiditis
- Continue home levothyroxine 100 mcg daily
DVT prophylaxis: SCDs
CODE STATUS: Full code
Anticipated Discharge: 24 - 48 hours
Subjective/Interval History
-
Date of Service: October 24, 2025
Patient was seen and examined at bedside this morning. Feeling better after blood transfusion but still slightly dizzy.
Objective Data
-
Labs:
Laboratory Results
10/24/25 10/24/25
06:00 07:51
WBC Cancelled 4.6 L
Hgb Cancelled 9.5 L
Hct Cancelled 28.4 L
Plt Count Cancelled 166
Sodium 134 L
Potassium 4.3
Chloride 106
Carbon Dioxide 21 L
BUN 24 H
Creatinine 1.4 H
Glucose 133 H
Calcium 8.9
Vital Signs:
Vital Signs
Temp Pulse Resp BP Pulse Ox
98.1 F 64 16 133/74 97
10/24/25 15:20 10/24/25 15:20 10/24/25 15:20 10/24/25 15:20 10/24/25 15:20
I&O
10/23/25 10/24/25 10/25/25
06:59 06:59 06:59
Intake Total 1000 / 1000 730 / 730
Balance 1000 / 1000 730 / 730
Review of Systems
-
History Source: Patient
All other systems: Reviewed and negative
Neuro: Reports Dizzy
Physical Exam
-
General: No Apparent Distress
[2025-10-24 16:40] LABS: Glucose - Point of Care 201 mg/dl (70-99)
[2025-10-24] MEDS: NOVOLOG FLEXPEN-LOW RESISTANCE 2 UNITS SC (16:46)
[2025-10-24 19:59] VITALS: BP 145/73
[2025-10-24] MEDS: PRAVACHOL 10 MG PO (21:17)
[2025-10-24 21:44] LABS: Glucose - Point of Care 272 mg/dl (70-99)
[2025-10-24 23:44] VITALS: BP 131/59
[2025-10-25] VITALS (8 sets, daily range): BP systolic 121–155; BP diastolic 62–83; PULSE 60–62; O2SAT 97; BMI 29.4
[2025-10-25] MEDS: SYNTHROID 100 MCG PO (05:48)
[2025-10-25 08:07] LABS: Hematocrit 27.4 % (37.0-47.0); Hemoglobin 9.2 g/dL (12.0-16.0); Mean Corp Hgb Conc. 33.6 g/dL (33.0-37.0); Mean Corpuscular Volume 92.9 fL (81.0-99.0); Nucleated Red Blood Cells % 0 %; Platelet Count 157 10^3/uL (130-400); Red Cell Dist. Width 13.3 % (11.5-14.5)
[2025-10-25 08:31] LABS: Glucose - Point of Care 158 mg/dl (70-99)
[2025-10-25 08:48] LABS: Blood Urea Nitrogen 24 mg/dl (7-17); Calcium 9.0 mg/dl (8.4-10.2); Carbon Dioxide 22 mmol/L (22-30); Chloride 107 mmol/L (98-107); Estimated Creatinine Clearance 31 ml/min; Glucose 135 mg/dl (70-99); Potassium 4.5 mmol/L (3.5-5.1); Sodium 135 mmol/L (135-145); eGFR 42.35
[2025-10-25] MEDS: NOVOLOG FLEXPEN-LOW RESISTANCE 1 UNITS SC (09:28)
[2025-10-25] MEDS: NSS (PRESERVATIVE FREE) 10 ML IV (09:29)
[2025-10-25] MEDS: LEXAPRO 20 MG PO (09:29)
[2025-10-25] MEDS: NORVASC 5 MG PO (09:29)
[2025-10-25] MEDS: PROTONIX IV 40 MG IV (09:29)
[2025-10-25] MEDS: TOPROL XL 50 MG PO (09:30)
[2025-10-25] MEDS: VISBIOME 1 CAP PO (09:30)
[2025-10-25] MEDS: ZENPEP DELAYED RELEASE CAPSULE 4 CAPSULE PO (09:30)
[2025-10-25] MEDS: VITAMIN B-12 1000 MCG PO (09:30)
[2025-10-25] MEDS: TYLENOL 650 MG PO (09:30)
[2025-10-25] MEDS: THERAGRAN 1 TABLET PO (09:30)
[2025-10-25] MEDS: VITAMIN D3 (cholecalciferol) 25 MCG PO (09:30)
[2025-10-25] MEDS: FLUSH (NSS) 2 FLUSH IV (09:31)
[2025-10-25 11:25] LABS: Glucose - Point of Care 248 mg/dl (70-99)
[2025-10-25] MEDS: ROCEPHIN 1000 MG IV (12:41)
[2025-10-25] MEDS: STERILE WATER FOR INJECTION 10 ML IV (12:41)
[2025-10-25] MEDS: NOVOLOG FLEXPEN-LOW RESISTANCE 2 UNITS SC (12:41)
[2025-10-25] MEDS: FIORICET 1 TAB PO (14:13)
--- NOTE | 2025-10-25 15:30 | PTCARENOTE ---
Pt keeps saying how she is dizzy when she gets up. Made Dr. Leggett aware, orthostatic vital signs completed and made MD aware of results. MD wants to have physical therapy see pt before deciding about possible discharge today. Updated pt on
plan.
--- NOTE | 2025-10-25 16:17 | W.PN.HOSP.TC ---
Today's Communication/Plan
-
Assessment / Plan
Assessment / Plan
General: No Apparent Distress, Comfortable and Conversant
HEENT: NormoCephalic, Moist mucous membranes, Atraumatic
Respiratory: Clear and Non Labored Respirations
Cardiac: S1/S2 and Regular Rhythm; No Rub or Gallop
GI: Soft, lower abdominal TTP
Musculoskeletal: No Edema, no deformity
Skin: Warm and dry
: NO Pillai
Neuro: Awake, Alert, Nonfocal/grossly intact
Psych: Calm and Intact Judgment/Insight
Ms. 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
post ablation 2016), duodenal ulcer with GI bleed, CVA, cervical cancer (hysterectomy), nephrolithiasis (recent ureteral stent), and chronic MIKE who presented with abdominal pain and maroon-colored stools. She has a history of diverticular bleed in
2017 and has had a resection for diverticulitis. One day prior to arrival she suddenly had the urge to defecate at which time she had a bowel movement with dark red blood with a little stool. She remained hemodynamically stable in the ED. She was
admitted and kept n.p.o. after midnight for endoscopy.
Lower GI bleeding:
- Likely resolved diverticular bleed
- Upper endoscopy 10/22 showed no evidence of esophageal or gastric varices, octreotide drip discontinued
- Colonoscopy 10/23 showed 10 mm hepatic flexure polyp which was removed with hot snare, also showed small mouth diverticulosis throughout most of her colon and clotted blood in the rectum
- Tolerating low residue diet
- Transfused 1 unit PRBCs 10/23, hemoglobin improved from 7.8 => 9.5, remained stable today at 9.2
- Will discontinue Protonix
- Appreciate GI guidance, now signed off
- Will continue antibiotics for total 5-day course, last dose 10/26
- Patient still feeling slightly dizzy today worse with ambulation, orthostatic vital signs normal, likely due to anemia, will monitor overnight, anticipate discharge tomorrow 10/26
Acute on chronic anemia:
- Iron deficiency anemia chronically
- Now with superimposed blood loss due to GI bleeding, likely diverticular bleed which has now resolved
- Hemoglobin 9.5 => 8.7 => 7.8 transfused 1 unit PRBCs => 9.5, remained stable today at 9.2
- Monitor hemoglobin closely and transfuse further as needed
- Baseline hemoglobin appears to be around 11
NIDDM:
- Uses metformin, glimepiride, and Trulicity at home
- Was hypoglycemic and symptomatic while NPO so started on IV fluids with dextrose at low rate
- Now tolerating p.o. diet, blood sugars better controlled
- Will continue home glimepiride with additional sliding scale insulin as needed
- Continue Accu-Cheks
Hepatic cirrhosis with portal hypertension:
- Compensated
BAO and hyperkalemia:
- Initial serum potassium 5.8 creatinine 1.5
- Held home irbesartan
- Gave IV fluids
- Serum potassium now within normal limits
- Creatinine slightly improved today at 1.3 which may be close to her current baseline, will monitor
Hypertension:
- Holding home irbesartan due to BAO with hyperkalemia
- Restarted home amlodipine 5 mg daily today 10/25
Hypothyroidism:
- Secondary to Jean Marie's thyroiditis
- Continue home levothyroxine 100 mcg daily
DVT prophylaxis: SCDs
CODE STATUS: Full code
Anticipated Discharge: 24 - 48 hours
Subjective/Interval History
-
Date of Service: October 25, 2025
Patient was seen and examined at bedside this morning. Feeling better but still intermittently dizzy. Hemoglobin stable. No blood per rectum overnight.
Objective Data
-
Labs:
Laboratory Results
10/25/25
06:42
WBC 4.8
Hgb 9.2 L
Hct 27.4 L
Plt Count 157
Sodium 135
Potassium 4.5
Chloride 107
Carbon Dioxide 22
BUN 24 H
Creatinine 1.3 H
Glucose 135 H
Calcium 9.0
Vital Signs:
Vital Signs
Temp Pulse Resp BP Pulse Ox
97.8 F 59 18 124/67 98
10/25/25 15:36 10/25/25 15:36 10/25/25 15:36 10/25/25 15:36 10/25/25 15:36
I&O
10/24/25 10/25/25 10/26/25
06:59 06:59 06:59
Intake Total 730 / 730 1320 / 1320
Balance 730 / 730 1320 / 1320
Review of Systems
-
History Source: Patient
All other systems: Reviewed and negative
Constitutional: Reports Weakness
Neuro: Reports Dizzy
Physical Exam
-
General: No Apparent Distress
[2025-10-25 16:30] LABS: Glucose - Point of Care 105 mg/dl (70-99)
[2025-10-25] MEDS: NOVOLOG FLEXPEN-LOW RESISTANCE SC (16:34)
[2025-10-25] MEDS: AMARYL 4 MG PO (17:58)
[2025-10-25] MEDS: NSS (PRESERVATIVE FREE) IV (20:47)
[2025-10-25] MEDS: PRAVACHOL 10 MG PO (21:07)
[2025-10-25 21:24] LABS: Glucose - Point of Care 182 mg/dl (70-99)
[2025-10-26 03:41] VITALS: BP 138/69
[2025-10-26 06:00] VITALS: BMI 29.3
[2025-10-26] MEDS: SYNTHROID 100 MCG PO (06:07)
[2025-10-26] MEDS: TYLENOL 650 MG PO ×2 (06:12→12:22)
[2025-10-26 07:56] LABS: Hematocrit 28.5 % (37.0-47.0); Hemoglobin 9.6 g/dL (12.0-16.0); Mean Corp Hgb Conc. 33.7 g/dL (33.0-37.0); Mean Corpuscular Volume 94.7 fL (81.0-99.0); Nucleated Red Blood Cells % 0 %; Platelet Count 169 10^3/uL (130-400); Red Cell Dist. Width 13.2 % (11.5-14.5)
[2025-10-26 08:29] LABS: Blood Urea Nitrogen 26 mg/dl (7-17); Calcium 9.1 mg/dl (8.4-10.2); Carbon Dioxide 22 mmol/L (22-30); Chloride 105 mmol/L (98-107); Estimated Creatinine Clearance 34 ml/min; Glucose 106 mg/dl (70-99); Potassium 4.5 mmol/L (3.5-5.1); Sodium 135 mmol/L (135-145); eGFR 46.62
[2025-10-26] MEDS: NOVOLOG FLEXPEN-LOW RESISTANCE SC ×2 (08:30→17:03)
[2025-10-26 08:45] VITALS: BP 143/74
[2025-10-26 09:03] LABS: Glucose - Point of Care 112 mg/dl (70-99)
[2025-10-26] MEDS: AMARYL 4 MG PO (09:50)
[2025-10-26] MEDS: VISBIOME 1 CAP PO (09:50)
[2025-10-26] MEDS: THERAGRAN 1 TABLET PO (09:50)
[2025-10-26] MEDS: NORVASC 5 MG PO (09:50)
[2025-10-26] MEDS: TOPROL XL 50 MG PO (09:50)
[2025-10-26] MEDS: LEXAPRO 20 MG PO (09:50)
[2025-10-26] MEDS: ZENPEP DELAYED RELEASE CAPSULE 4 CAPSULE PO (09:51)
[2025-10-26] MEDS: VITAMIN B-12 1000 MCG PO (09:51)
[2025-10-26] MEDS: VITAMIN D3 (cholecalciferol) 25 MCG PO (09:51)
[2025-10-26] MEDS: NSS (PRESERVATIVE FREE) IV (09:57)
[2025-10-26 11:44] VITALS: BP 132/66; BP 135/70; BP 137/73; BP 158/80; PULSE 60; PULSE 63; PULSE 64
[2025-10-26 11:50] VITALS: BP 137/78
[2025-10-26 12:03] LABS: Glucose - Point of Care 222 mg/dl (70-99)
[2025-10-26] MEDS: NOVOLOG FLEXPEN-LOW RESISTANCE 2 UNITS SC (12:19)
[2025-10-26] MEDS: ROCEPHIN 1000 MG IV (12:20)
[2025-10-26] MEDS: STERILE WATER FOR INJECTION 10 ML IV (12:20)
[2025-10-26] MEDS: FLUSH (NSS) 2 FLUSH IV (12:20)
--- NOTE | 2025-10-26 12:39 | W.DCSUMMARY ---
Discharge Summary
Discharge Data
Date of Admission: 10/21/25
Date of Discharge: 10/26/25
Total time spent discharging patient (in min): 47
-
Pending Results: No
Hospital Course
Ms. 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
post ablation 2016), duodenal ulcer with GI bleed, CVA, cervical cancer (hysterectomy), nephrolithiasis (recent ureteral stent), and chronic MIKE who presented with abdominal pain and maroon-colored stools. She has a history of diverticular bleed in
2017 and has had a resection for diverticulitis. One day prior to arrival she suddenly had the urge to defecate at which time she had a bowel movement with dark red blood with a little stool. She remained hemodynamically stable in the ED. She was
admitted and kept n.p.o. after midnight for endoscopy.
Upper endoscopy on 10/22 showed no evidence of esophageal or gastric varices. Colonoscopy on 10/23 showed 810 mm hepatic flexure polyp which was removed with hot snare, also showed small mouth diverticulosis throughout most of her colon and clotted
blood in the rectum. She was transfused 1 unit PRBCs on 10/23 with improvement in her hemoglobin from 7.8 => 9.5. She was able to tolerate a low residue diet and had bowel movements that did not contain blood. Her hemoglobin remained stable and
was 9.6 on the day of discharge. She did have some ongoing dizziness which is likely due to her anemia. However orthostatic vital signs were normal. Noncontrast CT scan of her brain showed no acute intracranial abnormalities. She was evaluated
by physical therapy who determined she had no skilled needs currently. She has been instructed to continue oral iron supplementation after discharge. She had a mild BAO at the time of admission with a serum creatinine of 1.5 which returned to
baseline of 1.2 on the day of discharge. She will need to follow-up with her primary care physician and repeat lab work in 2 to 3 days to monitor her hemoglobin levels.
General: No Apparent Distress, Comfortable and Conversant
HEENT: NormoCephalic, Moist mucous membranes, Atraumatic
Respiratory: Clear and Non Labored Respirations
Cardiac: S1/S2 and Regular Rhythm; No Rub or Gallop
GI: Soft, lower abdominal TTP
Musculoskeletal: No Edema, no deformity
Skin: Warm and dry
: NO Pillai
Neuro: Awake, Alert, Nonfocal/grossly intact
Psych: Calm and Intact Judgment/Insight
Discharge Plan
-
Patient Disposition: Home (Routine Discharge)
Discharge Diagnosis/Procedures: Lower GI bleeding
Anemia requiring transfusion
Blood Work: CBC in 2 to 3 days to monitor hemoglobin level
BMP in 2 to 3 days to monitor renal function
Activity Restrictions/Additional Instructions:
You were admitted for further evaluation and management of lower GI bleeding. Upper endoscopy showed no evidence of bleeding. Colonoscopy showed a polyp which was removed and also showed multiple diverticula and blood in your rectum. Bleeding was
likely due to an oozing blood vessel in one of the diverticula and has stopped bleeding spontaneously. You were transfused 1 unit of blood with improvement and stabilization of your blood hemoglobin levels. Your lower GI bleeding has stopped.
Your blood pressure has remained stable throughout this admission. Your blood pressure did not drop with changes in position despite you reporting ongoing dizziness. Your dizziness is likely due to anemia from your GI bleeding. You will be
continued on oral iron supplementation after discharge. CT imaging of your brain showed no acute abnormality. You had mildly abnormal kidney function compared to your baseline when you first arrived in the hospital. Your kidney function improved
with IV fluids. You will need to follow-up with your primary care physician in 2 to 3 days for repeat lab work to monitor your hemoglobin levels and kidney function. You will need close follow-up with your primary timekeeper supervisor for further
monitoring and management.
Referrals:
Namrata Mccray MD [Family Provider, Family Practice]
Annita Pizano MD [Active, Gastroenterology] - in four to six weeks
Prescriptions:
New
cefuroxime axetil 250 mg tablet
250 mg PO BID 1 Days Qty: 2 0RF
ferrous gluconate 324 mg (37.5 mg iron) tablet
324 mg PO DAILY Qty: 30 0RF
meclizine 25 mg tablet
25 mg PO BID PRN (Reason: dizziness) Qty: 10 0RF
Continued
amlodipine [Norvasc] 5 mg Tablet
5 mg PO DAILY
pravastatin 10 mg Tablet
10 mg PO HS
metformin 1,000 mg Tablet
1,000 mg PO BID
escitalopram oxalate [Lexapro] 20 mg Tablet
20 mg PO DAILY
Trulicity 1.5 mg/0.5 mL Pen Injector
1.5 mg SC SA
metoprolol succinate [Toprol XL] 50 mg Tablet Extended Release 24 Hr
50 mg PO DAILY
cyanocobalamin (vitamin B-12) 1,000 mcg Tablet
1,000 mcg PO DAILY
therapeutic multivitamin Tablet
1 tab PO DAILY
levothyroxine 100 mcg Tablet
100 mcg PO DAILY
milk thistle 150 mg Capsule
150 mg PO DAILY
glimepiride 4 mg Tablet
4 mg PO BID
aspirin 81 mg Tablet
81 mg PO DAILY
colestipol 1 gram Tablet
1 g PO DAILY
cholecalciferol (vitamin D3) [Vitamin D3] 25 mcg (1,000 unit) Tablet
25 mcg PO DAILY
Visbiome 112.5 billion cell Capsule
1 cap PO DAILY
biotin 1 mg Capsule
1 mg PO DAILY
Pancrelipase
4 cap PO DAILY
Held
irbesartan 75 mg Tablet
37.5 mg PO DAILY
Hold Instructions: Hold until repeat lab work to monitor your kidney function, restart as able after discussion with your primary care physician
Discharge Orders:
Discharge Patient (As Directed); Ordered 10/26/25
Ordered By: Samuel Leggett
Discharge Date and Time
Print Language: UKRAINIAN
[2025-10-26 16:10] VITALS: BP 141/71
[2025-10-26 16:16] LABS: Glucose - Point of Care 60 mg/dl (70-99)
[2025-10-26 16:35] LABS: Glucose - Point of Care 92 mg/dl (70-99)
--- NOTE | 2025-10-26 16:54 | PTCARENOTE ---
Pt's blood sugar at 1615 60. Pt asymptomatic besides feeling dizzy with movement (not new). Pt drank 4 oz juice and pt eating dinner. Rechecked blood sugar at 1634, blood sugar 92. Made Dr. Leggett aware as pt is being discharged tonight.
Discussed with how pt takes Glimepiride 4 mg daily not BID as ordered. He will update discharge med list to reflect and indicated for pt to take her Trulicity tomorrow instead of today when she gets home. Updated pt on plan.
== END 2025-10-26 17:59 | disposition home or self-care (01) | DRG 378 ==
LOC: 4 EAST ACU 19:44
PROVIDERS: Emergency Medicine; Nurse Practitioner Adult Health; Specialist; ADMITTING PHYSICIAN Hospitalist; ATTENDING PHYSICIAN Internal Medicine; CONSULT PHYSICIAN Internal Medicine Gastroenterology; EMERGENCY PHYSICIAN Emergency Medicine; FAMILY PHYSICIAN Family Medicine
PROC: 0DJ08ZZ Inspection of Upper Intestinal Tract, Via Natural or Artificial Opening Endoscopic (ICD-10-PCS; 2025-10-22)
PROC: 30233N1 Transfusion of Nonautologous Red Blood Cells into Peripheral Vein, Percutaneous Approach (ICD-10-PCS; 2025-10-23)
PROC: 0DBL8ZZ Excision of Transverse Colon, Via Natural or Artificial Opening Endoscopic (ICD-10-PCS; 2025-10-23)
DX: K57.33 Diverticulitis of large intestine without perforation or abscess with bleeding (principal); D62 Acute posthemorrhagic anemia; K76.6 Portal hypertension; N17.9 Acute kidney failure, unspecified; E87.1 Hypo-osmolality and hyponatremia; K74.60 Unspecified cirrhosis of liver; I48.0 Paroxysmal atrial fibrillation; E06.3 Autoimmune thyroiditis; I12.9 Hypertensive chronic kidney disease with stage 1 through stage 4 chronic kidney disease, or unspecified chronic kidney disease; N18.9 Chronic kidney disease, unspecified; Z87.11 Personal history of peptic ulcer disease; Z86.73 Personal history of transient ischemic attack (TIA), and cerebral infarction without residual deficits; Z85.41 Personal history of malignant neoplasm of cervix uteri; Z90.710 Acquired absence of both cervix and uterus; D50.9 Iron deficiency anemia, unspecified; E11.22 Type 2 diabetes mellitus with diabetic chronic kidney disease; E87.5 Hyperkalemia; E78.00 Pure hypercholesterolemia, unspecified; M79.7 Fibromyalgia; E66.9 Obesity, unspecified; G25.81 Restless legs syndrome; M48.061 Spinal stenosis, lumbar region without neurogenic claudication; Z68.29 Body mass index [BMI] 29.0-29.9, adult; Z87.891 Personal history of nicotine dependence; Z96.641 Presence of right artificial hip joint; Z88.2 Allergy status to sulfonamides; Z79.890 Hormone replacement therapy; Z79.899 Other long term (current) drug therapy; Z79.85 Long-term (current) use of injectable non-insulin antidiabetic drugs; Z88.5 Allergy status to narcotic agent; Z91.040 Latex allergy status; Z79.82 Long term (current) use of aspirin; D12.3 Benign neoplasm of transverse colon; F32.A Depression, unspecified; F41.9 Anxiety disorder, unspecified; K21.9 Gastro-esophageal reflux disease without esophagitis; Z79.84 Long term (current) use of oral hypoglycemic drugs
CPT/HCPCS: 70450; 80048; 80053; 82607; 82728; 82746; 82962; 83036; 83540; 83550; 85014; 85018; 85025; 85027; 85610; 86850; 86900; 86901; 86920; 88305; 93005; 96374; 97116; 97162; 99285; J1610; J2354; P9016